=== PATIENT | female | born 2005 | race Caucasian/White ===

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

== ENCOUNTER 2023-06-01 23:37 | Emergency (ER) | payer BC, SELFPAY ==
[2023-06-01 23:38] VITALS: BP 133/96; PULSE 95; RESP 16; TEMP 36.4; O2SAT 100; BMI 41.3
--- OUTSIDE RECORDS SUMMARY | 2023-06-01 23:59 | XMS RPT_ITS | CCD ---
Author Name Unknown Address [id number] [place] [address] Organization [facility] Care Team Providers Care Medical Records Supervisor Name Role Phone Fide Truong Unavailable Unavailable Fide Truong Unavailable Unavailable Ad, Giuseppe Kwong Unavailable Unavailable Walker, Bridgette M Unavailable Unavailable Ad, Giuseppe L Unavailable Unavailable Walker, Bridgette M Unavailable Unavailable Catracho, Marcello L Unavailable Unavailable Catracho, Marcello L Unavailable Unavailable Ad, Giuseppe L Unavailable Unavailable Catracho, Marcello L Unavailable Unavailable Ad, Giuseppe L Unavailable Unavailable Catracho, Marcello L Unavailable Unavailable Ad, Giuseppe L Unavailable Unavailable Unavailable NO FAMILY PHYSICIAN, 837 Primary Care Unavail able ANN CHAND MD Attending Unavailable Ad, Dr. Giuseppe Cruz Primary Care Unavaila ble BuccaEmiliano Attending Unavailab marcio Duong, Dr. Giuseppe Cruz Primary Care UnavailAnn David Attending Unavailable Rustam Aponte Referring Unavailable Ad, Dr. Giuseppe Cruz Primary Care Unavaila Rustam Laguna Attending Unavailable Rustam Aponte Referring Unavailable Ad, Dr. Giuseppe Cruz Primary Care Unavaila Rustam Laguna Admitting Unavailable Rustam Aponte Attending Unavailable Ad, Dr. Giuseppe Cruz Primary Care Unavaila Ann Galloway Attending Unavailable Fadi, Dr. Rustam Pitt Attending Unavailable MD GIUSEPPE DUONG Primary Care Unavailab MD GIUSEPPE Roblero Referring Unavailab marcio Aponte, Dr. Rustam Pitt Attending Unavailable MD GIUSEPPE DUONG Primary Care Unavailab MD GIUSEPPE Roblero Primary Care Unavailab MD GIUSEPPE Roblero Referring Unavailab marcio Chen, Mrs. Ann Giron Attending MD GIUSEPPE Self Primary Care Unavailab marcio Aponte, Dr. Rustam Pitt Attending Unavailable Unavailable Primary Care Provider UnavailGiuseppe Ceja MD Primary Care Provider [phone] GIUSEPPE DUONG Primary Care Unavailable OLIVIA GREGORY Referring Unavailable GIUSEPPE DUONG Primary Care Unavailable SOFI TEMPLE Referring Unavailable GIUSEPPE DUONG Primary Care Unavailable GIUSEPPE DUONG Primary Care Unavailable OLIVIA GREGORY Attending Unavailable JOSS CALVILLO Attending Unavailable FIDE HODGE Attending Unavailable RYLEE DONOVAN Referring Unavailable RYLEE DONOVAN Attending Unavailable Allergies Allergy Classification Reported Allergen(s) Allergy Type Date of Onset Reaction(s) Facility Vital Signs Date Time Vital Sign Value Performing Clinician Facility 04-05-2023 03:06-0500 Diastolic blood pressure 71 mm[Hg] Olivia Gregory DO Work Phone: [facility] 04-05-2023 03:06-0500 Heart rate 67 /min Olivia Gregory DO Work Phone: [facility] 04-05-2023 03:06-0500 Respiratory rate 16 /min Olivia Gregory DO Work Phone: [facility] 04-05-2023 03:06-0500 SaO2% (BldA) [Mass fraction] 97 % Olivia Gregory DO Work Phone: [facility] 04-05-2023 03:06-0500 Systolic blood pressure 136 mm[Hg] Olivia Gregory DO Work Phone: [facility] 04-04-2023 21:11-0500 Body height 160 cm Olivia Gregory DO Work Phone: [facility] 04-04-2023 21:11-0500 Body mass index (BMI) [Ratio] 41.63 kg/m2 Olivia Gregory DO Work Phone: [facility] 04-04-2023 21:11-0500 Body temperature 97.11 [degF] Olivia Gregory DO Work Phone: [facility] 04-04-2023 21:11-0500 Body weight 106.59 kg Olivia Gregory DO Work Phone: [facility] 01-14-2023 11:05-0400 Body height 161.3 cm Rylee Ok PA-C Work Phone: [facility] 01-14-2023 11:05-0400 Body weight 106.59 kg Rylee Ok PA-C Work Phone: [facility] 01-14-2023 11:05-0400 Diastolic blood pressure 78 mm[Hg] Rlyee Ok PA-C Work Phone: [facility] 01-14-2023 11:05-0400 Heart rate 80 /min Rylee Ok PA-C Work Phone: [facility] 01-14-2023 11:05-0400 Systolic blood pressure 112 mm[Hg] Rylee Ko PA-C Work Phone: [facility] 07-15-2022 15:03-0400 Diastolic blood pressure 80 mm[Hg] Giuseppe Duong Work Phone: [facility] Work Phone: 07-15-2022 15:03-0400 Systolic blood pressure 122 mm[Hg] Giuseppe Duong Work Phone: [facility] Work Phone: 07-15-2022 15:02-0400 Body height 160.02 cm Giuseppe Duong Work Phone: [facility] Work Phone: 07-15-2022 15:02-0400 Body mass index (BMI) [Ratio] 42.78 kg/m2 Giuseppe Duong Work Phone: [facility] Work Phone: 07-15-2022 15:02-0400 Body surface area Derived from formula 2.1 m2 Giuseppe Duong Work Phone: [facility] Work Phone: 07-15-2022 15:02-0400 Body weight 109.54 kg Giuseppe Duong Work Phone: [facility] Work Phone: 07-15-2022 15:02-0400 31 1 Giuseppe Duong Work Phone: [facility] Work Phone: Encounters Encounter Date Encounter Type Care Provider Facility Start: 05-10-2023 End: 05-10-2023 ambulatory JOSS CALVILLO Facility:[facility] Start: 05-09-2023 End: 05-10-2023 ambulatory FIDE HODGE Facility:[facility] Start: 04-15-2023 End: 04-16-2023 ambulatory OLIVIA Henao [facility] Start: 04-15-2023 End: 04-15-2023 Subsequent hospital visit by physician Luis Carlos Mccollum 1 [facility] Procedures Date Procedure Procedure Detail Performing Clinician Start: 04-15-2023 [facility] OLIVIA Gudino WIFT Start: 04-15-2023 Hepatobil syst imag inc gb w/pharma intervenj Olivia W Gregory DO Work Phone: Start: 04-05-2023 US PELVIS TRANSABDOM INAL WITH TRANSVAGINAL OLIVIA Start: 04-05-2023 Us transvaginal Olivia W Gregory DO Work Phone: Start: 04-05-2023 SEDIMENTATION RATE, AUTOMATED OLIVIA Start: 04-05-2023 CT ABDOMEN PELVIS W IV CONTRAST OLIVIA Start: 04-04-2023 Comprehensive metabo lic 2000 panel - Serum or Plasma OLIVIA Start: 04-04-2023 Lipase [Enzymatic activity/volume] in Serum or Plasma OLIVIA Start: 04-04-2023 Magnesium [Mass/volu me] in Serum or Plasma OLIVIA GREGORY Start: 04-04-2023 CBC W Auto Different ial panel - Blood OLIVIA GREGORY Start: 04-04-2023 Sedimentation rate r bc automated Olivia Gregory DO Work Phone: Start: 04-04-2023 Ct abdomen & pelvis w/contrast material Olivia Gregory DO Work Phone: Start: 04-04-2023 End: 04-04-2023 Comprehensive metabolic panel Olivia Henao Swi ft DO Work Phone: Start: 03-17-2023 XR ABDOMEN 2 VIEWS S UPINE AND DECUBITUS OLIVIA GREGORY Start: 03-17-2023 CBC panel - Blood by Automated count GIUSEPPE DUONG Start: 03-17-2023 Comprehensive metabo lic 2000 panel - Serum or Plasma GIUSEPPE DUONG Start: 03-17-2023 Cyanocobalamin vitamin b-12 GIUSEPPE DUONG Start: 03-17-2023 Thyrotropin [Units/v olume] in Serum or Plasma GIUSEPPE DUONG Start: 03-17-2023 THYROXINE, FREE GIUSEPPE DUONG Start: 03-17-2023 VITAMIN D 25-HYDROXY,TOTAL GIUSEPPE DUONG Start: 03-17-2023 Radiologic exam abdo men 2 views Sofi Temple APRN-DUMP TRUCK DRIVER Work Phone: Start: 02-07-2023 Gastric emptying sandra ging study Rylee Euceda PA-C Work Phone: Start: 08-23-2022 SURGICAL PATHOLOGY RESULTS Rustam Aponte DO Work Phone: Start: 06-07-2022 Echocardiography Giuseppe Duong Work Phone: Start: 04-26-2022 Lipid 1996 panel - S maria c or Plasma Luis Carlos 1 Tonsillectomy and adenoidectomy Giuseppe Duong Work Phone: Plan of Treatment Date Care Activity Detail Author Start: 10-03-2053 Zoster Vaccines (1 of 2) Zoster Vaccines (1 of 2) [facility] Start: 04-26-2027 Lipid panel Lipid Panel [facility] Start: 12-31-2022 Influenza vaccination Influenza Vaccine (#1) [facility] Start: 10-03-2022 Urine microalbumin profile DTaP,Tdap,Td Vaccine (1 - Tdap) [facility] Start: 07-15-2022 NPV, Provider: Rustam Aponte, Status: Pen, Time: 3:00 PM NPV, Provider: Rustam Aponte, Status: Pen, Time: 3:00 PM NL-[id number]-Ehlrwno [address] [place] Work Phone: Start: 06-25-2022 FUV, Provider: Ann Chen, Status: Pen, Time: 1:00 PM FUV, Provider: Ann Chen, Status: Pen, Time: 1:00 PM MN-[id number]-Sqobgbb [address] [place] Work Phone: Start: 06-07-2022 EVENT JOSE, Provider: KATALINA DIAGNOSTIC THERAPIST,SMCMONITOR, Status: Pen, Time: 1:30 PM EVENT JOSE, Provider: KATALINA DIAGNOSTIC THERAPIST,SMCMONITOR, Status: Pen, Time: 1:30 PM [id number]-Rpccywkdhh-Atmxgny [address] [place] Work Phone: Start: 06-07-2022 ECHO, Provider: KATALINA HHVI ECHO 2,SMCECHO2, Status: Pen, Time: 12:30 PM ECHO, Provider: KATALINA HHVI ECHO 2,SMCECHO2, Status: Pen, Time: 12:30 PM [id number]-Mgtxqsf [address] [place] Work Phone: Start: 05-02-2022 Depression Assessment Depression Assessment [facility] Start: 10-03-2021 Chlamydia Screening (18-24) Chlamydia Screening (18-24) [facility] Start: 10-03-2021 GC (Gonorrhea) Screening (18-24) GC (Gonorrhea) Screening (18-24) [facility] Start: 10-03-2021 Hepatitis C Screening Hepatitis C Screening [facility] Start: 10-03-2021 Hepatitis C screening Hepatitis C Screening [facility] Start: 10-03-2021 HIV Screening HIV Screening [facility] Start: 2019 Meningococcal B Vaccine: Consider Based On Risk (1 of 2 - Patient Seeks Protection) Meningococcal B Vaccine: Consider Based On Risk (1 of 2 - Patient Seeks Protection) [facility] Start: 10-03-2017 Peds To Adult Transition Annual Assessment Peds To Adult Transition Annual Assessment [facility] Start: 2015 Peds To Adult Transition Initial Discussion Peds To Adult Transition Initial Discussion [facility] Start: 10-03-2014 HPV Vaccines (1 - 2-dose series) HPV Vaccines (1 - 2-dose series) [facility] Start: 10-03-2012 HPV Vaccine (1 - 2-dose series) HPV Vaccine (1 - 2-dose series) [facility] Start: 10-03-2010 DTaP/Tdap/Td Vaccines (1 - Tdap) DTaP/Tdap/Td Vaccines (1 - Tdap) [facility] Start: 10-03-2006 Well Child Visit (WCV) - Annual Well Child Visit (WCV) - Annual [facility] Start: 10-03-2004 MMR Vaccines (1 of 1 - Standard series) MMR Vaccines (1 of 1 - Standard series) [facility] Start: 10-03-2004 Varicella vaccination Varicella Vaccines (1 of 2 - 2-dose childhood series) [facility] Start: 06-05-2004 Application of dental fluoride varnish Fluoride Varnish [facility] Start: 04-04-2004 Covid-19 Vaccine (#1) Covid-19 Vaccine (#1) [facility] Start: 2003 Hearing Screening (#1) Hearing Screening (#1) [facility] Start: 2003 Hepatitis B Vaccine (1 of 3 - 3-dose series) Hepatitis B Vaccine (1 of 3 - 3-dose series) [facility] Start: 2003 Hepatitis B Vaccines (1 of 3 - 3-dose series) Hepatitis B Vaccines (1 of 3 - 3-dose series) [facility] Start: 2003 HIV screening HIV Screening [facility] End: 02-13-2024 Gastric emptying imaging study NM GASTRIC EMPTYING SOLID Radiology Routine Bilateral upper abdominal pain Nausea Early satiety 1 Occurrences starting 01/14/2023 until 02/13/2024 [facility] Work Phone: Immunizations Immunization Date Immunization Notes Care Provider Mark rudolph 06-27-2004 influenza virus vacc ine, unspecified formulation Rylee Euceda PA-C Work Phone: [facility] Payers Date Payer Category Payer Unknown [id number] 2017 Unknown 2008 Unknown [id number] 2003 Unknown [id number] 2.16.8 [id number] 2003 Unknown [id number] 2.16.8 [id number] 2003 Unknown [id number] 2.16.8 [id number] 2003 Unknown [id number] 2.16.8 [id number] 2003 Unknown [id number] 2.16.8 [id number] 2003 Unknown [id number] 2.16.8 [id number] 2003 Unknown [id number] 2.16. [id number] 2003 Unknown [id number] 2.16. [id number] 2003 Unknown [id number] 2.16. [id number] 2003 Unknown [id number] 2.16.8 [id number] 2003 Unknown [id number] 2.16.84 [id number] 2003 Unknown [id number] 2.16.84 0.1.785735.3.579.2.1243 2003 Unknown [id number] 2.16.84 [id number] 1983 Unknown [id number] 2.16.84 [id number] 1983 Unknown [id number] 2.16.84 [id number] 1983 Unknown [id number] 2.16.84 [id number] 1983 Unknown [id number] 2.16.84 [id number] 1983 Unknown [id number] 2.16. [id number] Social History Date Type Detail Facility Start: 01-14-2023 No caffeine use No caffeine use [facility] Work Phone: Start: 01-14-2023 Tobacco smoking status PAIS Never smoked tobacco [facility] Start: 01-14-2023 Tobacco use and exposure Smokeless tobacco non-user [facility] Start: 01-14-2023 Alcohol intake Lifetime non-d teresa (finding) [facility] Start: 01-14-2023 Tobacco use panel [facility] National Score (1-100), lower number is lower risk 70 [facility] Start: 2003 Sex Assigned At Not on file [facility] Tobacco smoking status [facility] Tobacco smoking consumption unknown [facility] Work Phone: Start: 03-07-2023 End: 04-15-2023 Exposure to SARS-CoV-2 (event) Not sure [facility] Clinical Notes 01-30-2022 to 05-10-2023 Olivia Gregory, DO - 04/04/2023 9:03 PM Juan Antonio Gregory DO - 04/04/2023 9:03 PM Art Pace RT(R) - 02/07/2023 8:30 AM Rylee Hudson PA-C - 01/14/2023 11:05 AM EDT Note Date & Type Note Facility 05-10-2023 Note HNO ID: [id number] Author: JOSS CALVILLO MD Service: ? Author Type: Physician Type: Progress Notes Filed: 05/12/2023 10:16 Note Text: Kajal Sweeney is a 17 year old White female who presents with complaints of cholecystitis HPI: This is a 17 yo female who presents today for persistent abdominal pains and nausea. She presents today on her own. States that she has been experiencing recurrent episodes over past 2 years. Reports that symptoms are worsened with eating. Pain localized to RUQ and epigastrium. Also states that she underwent EGD as part of workup last year. Denies any symptom improvement with PPI. Denies any chest pain or shortness of breath or palpitations associated with presenting complaint. Patient denies any prior abdominal surgery. Currently vapes intermittently - cessation counseled at today's visit. Denies any pertinent FMH. Takes PRN antiemetic - denies any other home meds. Denies EtOH. Pertinent workup includes: CT abdomen pelvis w IV contrast Final Result 1. 8.6 cm right adnexal mass with characteristics most suggestive of an ovarian dermoid/teratoma. Given the size of the mass, this may place patient at risk for torsion. FINDINGS: LOWER CHEST: No acute abnormality. LIVER: No significant parenchymal abnormality. BILE DUCTS: No significant intrahepatic or extrahepatic dilatation. GALLBLADDER: No significant abnormality. PANCREAS: No significant abnormality. SPLEEN: No significant abnormality. ADRENALS: No significant abnormality. KIDNEYS, URETERS, BLADDER: No significant abnormality. REPRODUCTIVE ORGANS: The uterus is unremarkable. There is an 8.6 x 5.2 cm right adnexal mass which contains soft tissue and macroscopic fat elements most suggestive of an ovarian dermoid/teratoma. Probable left ovarian corpus luteal cyst. GI: No obstruction. No bowel wall thickening or adjacent inflammatory change. Cecum is positioned within the mid pelvis in the appendix is in the left lower quadrant. The appendix is unremarkable. VESSELS: No significant abnormality. The portal veins and IVC are patent. PERITONEUM/RETROPERITONEUM: No ascites, free air, or fluid collection. LYMPH NODES: No enlarged lymph nodes. ABDOMINAL WALL: No significant abnormality. OSSEOUS STRUCTURES: No acute osseous abnormality. US PELVIS TRANSABDOMINAL WITH TRANSVAGINAL Final Result: Large complex echogenic mass in the right adnexa measuring 7.5 x 6.2 x 7.7 cm. This corresponds to large ovarian dermoid as characterized on concurrent CT. Flow is demonstrated to the periphery of this mass. A separate right ovary is not identified. Note should be made that presence of flow does not exclude torsion. Correlate with symptomatology and if there is high clinical concern gynecological consultation can be considered. Unremarkable sonographic appearance of the uterus and left ovary. IMPRESSION:1. This study demonstrates markedly delayed filling of the gallbladder, findings are consistent with chronic cholecystitis and biliary dyskinesia in the appropriate clinical setting. 04/2023: T.bili: 0.4, Alk phos: 51, AST: 43, ALT: 38 PAST MEDICAL HISTORY Diagnosis Date Chronic cholecystitis Scoliosis PAST SURGICAL HISTORY Procedure Laterality Date EGD W/O [facility] SPEC VARICIES INJ 08/23/2022 TONSILLECTOMY AND ADENOIDECTOMY Social History Tobacco Use Smoking status: Never Smokeless tobacco: Never Vaping Use Vaping Use: current everyday user Substances: Nicotine Substance Use Topics Alcohol use: Never Drug use: Never FAMILY HISTORY Problem Relation Age of Onset Heart Mother Diabetes Father Heart Sister Hypertension Sister Stroke Maternal Grandmother Colon Cancer No Family History ALLERGIES No Known Allergies Current Outpatient Medications Medication Sig promethazine (PHENERGAN) 12.5 mg tablet Take 1 tablet by mouth every 6 hours as needed. No current facility-administered medications for this visit. REVIEW OF SYSTEMS: Review of Systems Constitutional: Negative for chills and fever. Respiratory: Negative for shortness of breath. Cardiovascular: Negative for chest pain. Gastrointestinal: Positive for abdominal pain, constipation, nausea and vomiting. Negative for diarrhea. PHYSICAL EXAM: BP 110/72 Ht 5' 3 (1.60m) Wt 237 lb (107.5kg) LMP 04/15/2023 BMI 41.99 kg/(m2). General Evaluation: NAD, alert/oriented Head: Normocephalic Neck: No JVD Chest: Symmetrical Abdomen: soft, obese, mildly TTP RUQ, no R/G/PS, negative Pena's sign. No RLQ pain or pelvic pain Genitalia: Deferred Breast: Deferred Extremities: Normal ROM Constitutional: No acute distress Eyes: EOMI Ears, nose, mouth, and throat: Grossly WNL Respiratory/lungs: No acute distress or dyspnea Musculoskeletal: Ambulatory Skin: No jaundice Neurologic: CN grossly intact Psychiatric: Alert, Oriented Hematologic/lymphatic: No lymphedema Proce (more content not included)... [facility] 05-09-2023 Note HNO ID: [id number] Author: FIDE HODGE APRN.DUMP TRUCK DRIVER Service: ? Author Type: Nurse Practitioner Type: Progress Notes Filed: 05/09/2023 17:19 Note Text: Kajal Sweeney is a 17 year old female who presents for problem visit of adnexal mass. HPI: Patient was seen in the ER on 04/04/23 for abdominal pain. Found a gallbladder problem, has appointment tomorrow to schedule surgery with [facility]. Surgery is to be at [facility] by Dr. Paulino. 8.6 cm right adnexal mass with characteristics most suggestive of an ovarian cyst/teratoma (noted on CT). OB History No obstetric history on file. [facility] Therapist History LMP: 04/15/2023 (Exact Date), Having periods Age at Menarche: Age at First : Age at Menopause: [facility] [employer] Therapist History Comments: Sexual Activity: Yes; Male Contraception: Condom PAST MEDICAL HISTORY Diagnosis Date Chronic cholecystitis Scoliosis PAST SURGICAL HISTORY Procedure Laterality Date EGD W/O [facility] SPEC VARICIES INJ 08/23/2022 TONSILLECTOMY AND ADENOIDECTOMY FAMILY HISTORY Problem Relation Age of Onset Heart Mother Diabetes Father Heart Sister Hypertension Sister Stroke Maternal Grandmother Colon Cancer No Family History Social History Tobacco Use Smoking status: Never Smokeless tobacco: Never Vaping Use Vaping Use: current everyday user Substances: Nicotine Substance Use Topics Alcohol use: Never Drug use: Never Current Outpatient Medications Medication Sig promethazine (PHENERGAN) 12.5 mg tablet Take 1 tablet by mouth every 6 hours as needed. No current facility-administered medications for this visit. Allergies As of Date: 05/09/2023 (No Known Allergies) Fully Assessed 01/14/2023 REVIEW OF SYSTEMS Abdomen: No bloating, early satiety, indigestion, or increased flatulence. No abdominal pain, vomiting, diarrhea + nausea, constipation Bladder: No dysuria, gross hematuria, urinary frequency, urinary urgency, or incontinence. Breast: No breast lumps, nipple d/c, overlying skin changes, redness or skin retraction. Expanded ROS: N/A Allergies and current medication updated:Yes EXAM: BP 108/68 Ht 5' 3.5 (1.61m) Wt 230 lb (104.3kg) LMP 04/15/2023 BMI 40.10 kg/(m2). GENERAL: pleasant, female in no apparent distress HEENT: Normocephalic, atraumatic, mucus membranes moist, and no lesions NECK: Supple, full range of motion, no adenopathy, and thyroid normal DERMATOLOGY: Normal, without lesions, non-icteric, and non-hirsute BREAST: soft, non-tender, symmetric, no dominant mass, normal nipple-areolar complex, no lymphadenopathy, and no nipple discharge (done per patient request) CHEST: Normal inspiratory effort ABDOMEN: soft, non-tender, and no masses NEURO: alert and oriented x3,exam grossly non-focal EXTREMITIES: normal ASSESSMENT AND PLAN: 1. Adnexal mass - ICD9: 625.8, ICD10: N94.89 - 8 cm suspected dermoid cyst - Having surgery to removal gallbladder, yet to be scheduled - Discussed risks of torsion with patient and signs and symptoms, when to go to ER - Cyst will need removed - To consult with OBGYN physician Fide Hodge APRN.HEIDI Medical Decision Making: Problems: Moderate: New problem with uncertain prognosis Risk: Moderate: Decision on minor surgery w/ risk factors Medical Decision Making Level: 4 - Moderate [facility] 04-04-2023 Emergency department Note HPI Chief Complaint Patient presents with Abdominal Pain Pt is c/o abdominal pain that is radiating to her back. Pt denies and trauma. Pt stated she can't describe the pain. Pt rated the pain an 8/10 on pain scale. 17-year-old female presents with chief complaint of midepigastric pain. Patient states symptoms started approximately 1 hour ago. Patient states she has had similar symptoms for the last 2 years with etiology never being determined. Patient states she had an gastric emptying study and an ultrasound of the gallbladder which she states she was told were normal. Patient is presently on no medication to treat this. Slight nausea but no vomiting or diarrhea at present. Patient denies any chest pain or shortness of breath or palpitations associated presenting complaint. I did go over all the results with the patient. I spoke to the patient at length about her workup over the last 12+ months. I feel the patient has biliary dyskinesia. Patient will have an ultrasound of the gallbladder with Kinevac to determine if this is the case. Patient will take the prescription to her provider so the test can be ordered. Patient will be discharged on medication as needed.. History provided by: Patient Mirela Coma Scale Score: 15 Patient History No past medical history on file. No past surgical history on file. No family history on file. Social History Tobacco Use Smoking status: Not on file Smokeless tobacco: Not on file Substance Use Topics Alcohol use: Not on file Drug use: Not on file Physical Exam ED Triage Vitals [04/04/232110] Temp Heart Rate Resp BP 36.2 C (97.1 F) 94 16 131/81 SpO2 Temp Source Heart Rate Source Patient Position 100 % Tympanic Monitor Sitting BP Location FiO2 (%) Left arm -- Physical Exam Vitals and nursing note reviewed. Constitutional: General: She is not in acute distress. Appearance: She is well-developed. HENT: Head: Normocephalic and atraumatic. Eyes: Conjunctiva/sclera: Conjunctivae normal. Cardiovascular: Rate and Rhythm: Normal rate and regular rhythm. Heart sounds: No murmur heard. Pulmonary: Effort: Pulmonary effort is normal. No respiratory distress. Breath sounds: Normal breath sounds. Abdominal: Palpations: Abdomen is soft. Tenderness: There is abdominal tenderness in the epigastric area. Musculoskeletal: General: No swelling. Cervical back: Neck supple. Skin: General: Skin is warm and dry. Capillary Refill: Capillary refill takes less than 2 seconds. Neurological: Mental Status: She is alert. Psychiatric: Mood and Affect: Mood normal. Labs Reviewed COMPREHENSIVE METABOLIC PANEL - Abnormal Result Value Glucose 83 Sodium 135 (*) Potassium 3.7 Chloride 103 Bicarbonate 20 (*) Anion Gap 16 Urea Nitrogen 13 Creatinine 0.47 (*) eGFR >90 Calcium 9.1 Albumin 4.4 Alkaline Phosphatase 51 Total Protein 7.7 AST 43 (*) Bilirubin, Total 0.4 ALT 38 SEDIMENTATION RATE, AUTOMATED - Abnormal Sedimentation Rate 24 (*) MAGNESIUM - Normal Magnesium 2.11 LIPASE - Normal Lipase 20 Narrative: Venipuncture immediately after or during the administration of Metamizole may lead to falsely low results. Testing should be performed immediately prior to Metamizole dosing. CBC WITH AUTO DIFFERENTIAL WBC 10.7 nRBC 0.0 RBC 5.01 Hemoglobin 14.6 Hematocrit 45.1 MCV 90 MCH 29.1 MCHC 32.4 RDW 12.0 Platelets 283 Neutrophils % 70.6 Immature Granulocytes %, Automated 0.4 Lymphocytes % 23.3 Monocytes % 4.1 Eosinophils % 1.1 Basophils % 0.5 Neutrophils Absolute 7.56 Immature Granulocytes Absolute, Automated 0.04 Lymphocytes Absolute 2.49 Monocytes Absolute 0.44 Eosinophils Absolute 0.12 Basophils Absolute 0.05 US PELVIS TRANSABDOMINAL WITH TRANSVAGINAL Final Result Large complex echogenic mass in the right adnexa measuring 7.5 x 6.2 x 7.7 cm. This corresponds to large ovarian dermoid as characterized on concurrent CT. Flow is demonstrated to the periphery of this mass. A separate right ovary is not identified. Note should be made that presence of flow does not exclude torsion. Correlate with symptomatology and if there is high clinical concern gynecological consultation can be considered. Unremarkable sonographic appearance of the uterus and left ovary. MACRO: None Signed by: Sonya Thompson 04/05/2023 2:19 AM Dictation workstation: [id number] CT abdomen pelvis w IV contrast Final Result 1. 8.6 cm right adnexal mass with characteristics most suggestive of an ovarian dermoid/teratoma. Given the size of the mass, this may place patient at risk for torsion. MACRO: None Signed by: Richard Del Rosario 04/04/2023 11:33 PM Dictation workstation: [id number] ED Course & MDM Diagnoses as of 04/05/23 0303 Cyst, ovary, dermoid, right Biliary dyskinesia US PELVIS TRANSABDOMINAL WITH TRANSVAGINAL Final Result Large complex echogenic mass in the right adnexa measuring 7.5 x 6.2 x 7.7 cm. This corresponds to large ovarian dermoid as characterized on concurrent CT. Flow is demonstrated to the periphery of this mass. A separate right ovary is not identified. Note should be made that presence of flow does not exclude torsion. Correlate with symptomatology and if there is high clinical concern gynecological consultation can be considered. Unremarkable sonographic appearance of the uterus and left ovary. MACRO: None Signed by: Sonya Thompson 04/05/2023 2:19 AM Dictation workstation: [id number] CT abdomen pelvis w IV contrast Final Result 1. 8.6 cm right adnexal mass with characteristics most suggestive of an ovarian dermoid/teratoma. Given the size of the mass, this may place patient at risk for torsion. MACRO: None Signed by: Richard Del Rosario 04/04/2023 11:33 PM Dictation workstation: [id number] Medical Decision Making Hita Scan of GB as an outpt. Take medication as prescribed. Mcnairy diet. Follow-up with [facility] for evaluation of large right dermoid cyst. If symptoms worsen return to ED. Procedure Procedures Olivia Gregory DO 04/05/23 030 documented in this encounter [facility] Work Phone: 04-04-2023 Physician Emergency department Note HPI Chief Complaint Patient presents with Abdominal Pain Pt is c/o abdominal pain that is radiating to her back. Pt denies and trauma. Pt stated she can't describe the pain. Pt rated the pain an 8/10 on pain scale. 17-year-old female presents with chief complaint of midepigastric pain. Patient states symptoms started approximately 1 hour ago. Patient states she has had similar symptoms for the last 2 years with etiology never being determined. Patient states she had an gastric emptying study and an ultrasound of the gallbladder which she states she was told were normal. Patient is presently on no medication to treat this. Slight nausea but no vomiting or diarrhea at present. Patient denies any chest pain or shortness of breath or palpitations associated presenting complaint. I did go over all the results with the patient. I spoke to the patient at length about her workup over the last 12+ months. I feel the patient has biliary dyskinesia. Patient will have an ultrasound of the gallbladder with [employer] to determine if this is the case. Patient will take the prescription to her provider so the test can be ordered. Patient will be discharged on medication as needed.. History provided by: Patient [place] Coma Scale Score: 15 Patient History No past medical history on file. No past surgical history on file. No family history on file. Social History Tobacco Use Smoking status: Not on file Smokeless tobacco: Not on file Substance Use Topics Alcohol use: Not on file Drug use: Not on file Physical Exam ED Triage Vitals [04/04/231] Temp Heart Rate Resp BP 36.2 C (97.1 F) 94 16 131/81 SpO2 Temp Source Heart Rate Source Patient Position 100 % Tympanic Monitor Sitting BP Location FiO2 (%) Left arm -- Physical Exam Vitals and nursing note reviewed. Constitutional: General: She is not in acute distress. Appearance: She is well-developed. HENT: Head: Normocephalic and atraumatic. Eyes: Conjunctiva/sclera: Conjunctivae normal. Cardiovascular: Rate and Rhythm: Normal rate and regular rhythm. Heart sounds: No murmur heard. Pulmonary: Effort: Pulmonary effort is normal. No respiratory distress. Breath sounds: Normal breath sounds. Abdominal: Palpations: Abdomen is soft. Tenderness: There is abdominal tenderness in the epigastric area. Musculoskeletal: General: No swelling. Cervical back: Neck supple. Skin: General: Skin is warm and dry. Capillary Refill: Capillary refill takes less than 2 seconds. Neurological: Mental Status: She is alert. Psychiatric: Mood and Affect: Mood normal. Labs Reviewed COMPREHENSIVE METABOLIC PANEL - Abnormal Result Value Glucose 83 Sodium 135 (*) Potassium 3.7 Chloride 103 Bicarbonate 20 (*) Anion Gap 16 Urea Nitrogen 13 Creatinine 0.47 (*) eGFR >90 Calcium 9.1 Albumin 4.4 Alkaline Phosphatase 51 Total Protein 7.7 AST 43 (*) Bilirubin, Total 0.4 ALT 38 SEDIMENTATION RATE, AUTOMATED - Abnormal Sedimentation Rate 24 (*) MAGNESIUM - Normal Magnesium 2.11 LIPASE - Normal Lipase 20 Narrative: Venipuncture immediately after or during the administration of Metamizole may lead to falsely low results. Testing should be performed immediately prior to Metamizole dosing. CBC WITH AUTO DIFFERENTIAL WBC 10.7 nRBC 0.0 RBC 5.01 Hemoglobin 14.6 Hematocrit 45.1 MCV 90 MCH 29.1 MCHC 32.4 RDW 12.0 Platelets 283 Neutrophils % 70.6 Immature Granulocytes %, Automated 0.4 Lymphocytes % 23.3 Monocytes % 4.1 Eosinophils % 1.1 Basophils % 0.5 Neutrophils Absolute 7.56 Immature Granulocytes Absolute, Automated 0.04 Lymphocytes Absolute 2.49 Monocytes Absolute 0.44 Eosinophils Absolute 0.12 Basophils Absolute 0.05 US PELVIS TRANSABDOMINAL WITH TRANSVAGINAL Final Result Large complex echogenic mass in the right adnexa measuring 7.5 x 6.2 x 7.7 cm. This corresponds to large ovarian dermoid as characterized on concurrent CT. Flow is demonstrated to the periphery of this mass. A separate right ovary is not identified. Note should be made that presence of flow does not exclude torsion. Correlate with symptomatology and if there is high clinical concern gynecological consultation can be considered. Unremarkable sonographic appearance of the uterus and left ovary. MACRO: None Signed by: Sonya Thompson 04/05/2023 2:19 AM Dictation workstation: [id number] CT abdomen pelvis w IV contrast Final Result 1. 8.6 cm right adnexal mass with characteristics most suggestive of an ovarian dermoid/teratoma. Given the size of the mass, this may place patient at risk for torsion. MACRO: None Signed by: Richard Del Rosario 04/04/2023 11:33 PM Dictation workstation: [id number] ED Course & MDM Diagnoses as of 04/05/23302 Cyst, ovary, dermoid, right Biliary dyskinesia US PELVIS TRANSABDOMINAL WITH TRANSVAGINAL Final Result Large complex echogenic mass in the right adnexa measuring 7.5 x 6.2 x 7.7 cm. This corresponds to large ovarian dermoid as characterized on concurrent CT. Flow is demonstrated to the periphery of this mass. A separate right ovary is not identified. Note should be made that presence of flow does not exclude torsion. Correlate with symptomatology and if there is high clinical concern gynecological consultation can be considered. Unremarkable sonographic appearance of the uterus and left ovary. MACRO: None Signed by: Sonya Thompson 04/05/2023 2:19 AM Dictation workstation: [id number] CT abdomen pelvis w IV contrast Final Result 1. 8.6 cm right adnexal mass with characteristics most suggestive of an ovarian dermoid/teratoma. Given the size of the mass, this may place patient at risk for torsion. MACRO: None Signed by: Richard Del Rosario 04/04/2023 11:33 PM Dictation workstation: [id number] Medical Decision Making Hita Scan of GB as an outpt. Take medication as prescribed. Mcnairy diet. Follow-up with [facility] for evaluation of large right dermoid cyst. If symptoms worsen return to ED. Procedure Procedures Olivia Gregory DO 04/05/23302 [facility] Work Phone: 02-07-2023 Note HNO ID: [id number] Author: Art Shukla RT(R) Service: Nuclear Medicine Author Type: Technologist Type: Progress Notes Filed: 02/07/2023 9:23 AM Note Text: RADIOLOGY SERVICE PROGRESS NOTE SERVICE DATE: 02/07/2023 SERVICE TIME: 9:22 AM PATIENT IDENTITY VERIFICATION COMPLETED USING TWO (2) STANDARD IDENTIFIERS: Name and Date of confirmed by patient verbally and Name and Date of confirmed by identification band FALL SCREENING: Has the patient had 2 falls in the last year or 1 fall with injury or currently using an Ambulatory Assistive Device (Walker, Cane, Wheelchair, Crutches, etc.)? No PATIENT GENDER DATA: .female : No ALLERGIES: Reviewed and unchanged MEDICATIONS REVIEWED: Not applicable PATIENT RELEVANT IMPLANT DATA REVIEWED: Not Applicable CREATININE: No results found for: CREAT , EGFROTH , EGFRAA P.O.C.T. RESULTS: N/A February 07, [address] PERFORMED: No IV SITE: NM only - not applicable, oral or physician administered agents given to patient POST EXAM PIV STATUS: Not applicable PROCEDURE TYPE: NM GET: 0.9 mCi Tc99m SULFUR COLLOID was administered orally via 3 ounces of Egg Beaters,1 piece of toast, 1 ounce of jelly with 8 ounces of water orally ADMINISTRATION TIME: 9:13 PATIENT DISCHARGED TO: Ambulatory patient, left [place] department area. A Diagnostic radioactive procedure has taken place, with no further precautions necessary other than routine body substance precautions. More information regarding radiation safety can be found using this link: [email or web address] [email or web address] SIGNATURE: RT Erum(R) PATIENT NAME: Kajal Sweeney DATE: February 07, 2023 TIME: 9:22 AM PAGER/CONTACT #: [facility] 02-07-2023 History of Present illness Narrative RADIOLOGY SERVICE PROGRESS NOTE SERVICE DATE: 02/07/2023 SERVICE TIME: 9:22 AM PATIENT IDENTITY VERIFICATION COMPLETED USING TWO (2) STANDARD IDENTIFIERS: Name and Date of confirmed by patient verbally and Name and Date of confirmed by identification band FALL SCREENING: Has the patient had 2 falls in the last year or 1 fall with injury or currently using an Ambulatory Assistive Device (Walker, Cane, Wheelchair, Crutches, etc.)? No PATIENT GENDER DATA: .female : No ALLERGIES: Reviewed and unchanged MEDICATIONS REVIEWED: Not applicable PATIENT RELEVANT IMPLANT DATA REVIEWED: Not Applicable CREATININE: No results found for: CREAT , EGFROTH , EGFRAA P.O.C.T. RESULTS: N/A February 07, [address] PERFORMED: No IV SITE: NM only - not applicable, oral or physician administered agents given to patient POST EXAM PIV STATUS: Not applicable PROCEDURE TYPE: NM GET: 0.9 mCi Tc99m SULFUR COLLOID was administered orally via 3 ounces of Egg Beaters,1 piece of toast, 1 ounce of jelly with 8 ounces of water orally ADMINISTRATION TIME: 9:13 PATIENT DISCHARGED TO: Ambulatory patient, left [place] department area. A Diagnostic radioactive procedure has taken place, with no further precautions necessary other than routine body substance precautions. More information regarding radiation safety can be found using this link: [email or web address] SIGNATURE: RT Erum(R) PATIENT NAME: Kajal Sweeney DATE: February 07, 2023 TIME: 9:22 AM PAGER/CONTACT #: documented in this encounter [facility] 01-14-2023 Note HNO ID: [id number] Author: Rylee Euceda PA-C Service: ? Author Type: Physician Neon Light Installer Type: Progress Notes Filed: 01/14/2023 11:32 AM Note Text: CHIEF COMPLAINT: Patient presents with: Abdominal Pain: Has been progressively getting worse over the last year. EGD 08/23/22 This consult was requested by Self for an opinion regarding abdominal pain. My final recommendations will be communicated to the requesting health care provider by way of the shared medical record for internal providers or letter via the [employer] for external providers. HPI: Kajal Sweeney is a 17 year old female who presents for Abdominal Pain (Has been progressively getting worse over the last year. EGD 08/23/22). Patient tells me that since October 22, developed abdominal pain. Notes pain is constant but severity comes and goes. Pain is in the upper abdomen and radiates into her back. Notes pain is worse when laying flat. Omeprazole made symptoms are worse. No GERD. Getting very nauseous with anything being put in her stomach. No vomiting. Notes a lot of early satiety. Appetite fluctuates. Down at least 60 lb since symptoms started. Bowel movements are irregular. Can have diarrhea or be constipated. Pain is not affected by bowel habits. Notes a lot of bloating. Struggling with not passing gas. Vapes nicotine. No recent alcohol use. Liver disease runs in family. EGD 07/2022: FINAL DIAGNOSIS A. DISTAL ESOPHAGUS BIOPSY: --SQUAMOCOLUMNAR JUNCTION WITH REFLUX ASSOCIATED CHANGE --INTESTINAL METAPLASIA, DYSPLASIA OR MALIGNANCY ARE NOT IDENTIFIED B. ANTRUM BIOPSY: --CHRONIC INACTIVE GASTRITIS, SEE NOTE --NO MORPHOLOGIC EVIDENCE OF HELICOBACTER PYLORI-LIKE ORGANISMS Note: An immunohistochemical stain for Helicobacter pylori is negative with appropriate control. C. DUODENUM BIOPSY: --SMALL BOWEL MUCOSA WITH PRESERVED VILLOUS ARCHITECTURE AND NO SIGNIFICANT DIAGNOSTIC CHANGE Abdominal US 07/23/2022: Impression Nonspecific increased echogenicity throughout the liver, most likely fatty infiltration. Record Review: [facility] / Outside records reviewed. PAST MEDICAL HISTORY Diagnosis Date Scoliosis PAST SURGICAL HISTORY Procedure Laterality Date EGD W/O [facility] SPEC VARICIES INJ 08/23/2022 TONSILLECTOMY AND ADENOIDECTOMY Allergies: ALLERGIES No Known Allergies Medications: No prescriptions on file. FAMILY HISTORY Problem Relation Age of Onset Colon Cancer No Family History Employer And Job Title: None on file Years Of Education Completed: Not specified Marital Status: Single Social History Tobacco Use Smoking status: Never Smokeless tobacco: Never Vaping Use Vaping Use: current everyday user Substance Use Topics Alcohol use: Never Drug use: Never Review of Systems: Review of Systems Constitutional: Positive for appetite change, fatigue and unexpected weight change. HENT: Positive for trouble swallowing. Gastrointestinal: Positive for abdominal distention, abdominal pain, constipation, diarrhea, nausea and vomiting. Change in bowel habits, Gas All other systems reviewed and are negative. Are you taking any blood thinners? No Physical Examination: Pulse 80 Ht 5' 3.5 (1.61m) Wt 235 lb (106.6kg) BMI 40.97 kg/(m2). Physical Exam Constitutional: Appearance: Normal appearance. She is obese. HENT: Head: Normocephalic and atraumatic. Eyes: General: No scleral icterus. Extraocular Movements: Extraocular movements intact. Conjunctiva/sclera: Conjunctivae normal. Pupils: Pupils are equal, round, and reactive to light. Cardiovascular: Rate and Rhythm: Normal rate and regular rhythm. Pulses: Normal pulses. Heart sounds: Normal heart sounds. Pulmonary: Effort: Pulmonary effort is normal. Breath sounds: Normal breath sounds. Abdominal: General: Abdomen is flat. Bowel sounds are normal. Palpations: Abdomen is soft. Tenderness: There is abdominal tenderness (epigastric TTP). Musculoskeletal: General: Normal range of motion. Cervical back: Normal range of motion and neck supple. Skin: General: Skin is warm and dry. Coloration: Skin is not jaundiced. Neurological: General: No focal deficit present. Mental Status: She is alert and oriented to person, place, and time. Psychiatric: Mood and Affect: Mood normal. Behavior: Behavior normal. Thought Content: Thought content normal. Judgment: Judgment normal. Assessment/Plan (R10.11, R10.12) Bilateral upper abdominal pain (primary encounter diagnosis) (R11.0) Nausea (R68.81) Early satiety 1. Bilateral upper abdominal pain -- Patient with bilateral upper abdominal pain, nausea, early satiety since last January. Has tried numerous OTC remedies, Omeprazole, Zofran without relief. -- Normal EGD/US -- Plan for GES r/o gastroparesis -- Start Phenergan 12.5 mg PRN q6H - NM GASTRIC EMPTYING SOLID; Future 2. Nausea -- Patient with bilateral upp (more content not included)... [facility] 01-14-2023 History of Present illness Narrative CHIEF COMPLAINT: Patient presents with: Abdominal Pain: Has been progressively getting worse over the last year. EGD 08/23/22 This consult was requested by Self for an opinion regarding abdominal pain. My final recommendations will be communicated to the requesting health care provider by way of the shared medical record for internal providers or letter via the [employer] for external providers. HPI: Kajal Sweeney is a 17 year old female who presents for Abdominal Pain (Has been progressively getting worse over the last year. EGD 08/23/22). Patient tells me that since February 20, developed abdominal pain. Notes pain is constant but severity comes and goes. Pain is in the upper abdomen and radiates into her back. Notes pain is worse when laying flat. Omeprazole made symptoms are worse. No GERD. Getting very nauseous with anything being put in her stomach. No vomiting. Notes a lot of early satiety. Appetite fluctuates. Down at least 60 lb since symptoms started. Bowel movements are irregular. Can have diarrhea or be constipated. Pain is not affected by bowel habits. Notes a lot of bloating. Struggling with not passing gas. Vapes nicotine. No recent alcohol use. Liver disease runs in family. EGD 07/2022: FINAL DIAGNOSIS A. DISTAL ESOPHAGUS BIOPSY: --SQUAMOCOLUMNAR JUNCTION WITH REFLUX ASSOCIATED CHANGE --INTESTINAL METAPLASIA, DYSPLASIA OR MALIGNANCY ARE NOT IDENTIFIED B. ANTRUM BIOPSY: --CHRONIC INACTIVE GASTRITIS, SEE NOTE --NO MORPHOLOGIC EVIDENCE OF HELICOBACTER PYLORI-LIKE ORGANISMS Note: An immunohistochemical stain for Helicobacter pylori is negative with appropriate control. C. DUODENUM BIOPSY: --SMALL BOWEL MUCOSA WITH PRESERVED VILLOUS ARCHITECTURE AND NO SIGNIFICANT DIAGNOSTIC CHANGE Abdominal US 07/23/2022: Impression Nonspecific increased echogenicity throughout the liver, most likely fatty infiltration. Record Review: [facility] / Outside records reviewed. PAST MEDICAL HISTORY Diagnosis Date Scoliosis PAST SURGICAL HISTORY Procedure Laterality Date EGD W/O [facility] SPEC VARICIES INJ 08/23/2022 TONSILLECTOMY & ADENOIDECTOMY <AGE 10 Allergies: ALLERGIES No Known Allergies Medications: No prescriptions on file. FAMILY HISTORY Problem Relation Age of Onset Colon Cancer No Family History Employer And Job Title: None on file Years Of Education Completed: Not specified Marital Status: Single Social History Tobacco Use Smoking status: Never Smokeless tobacco: Never Vaping Use Vaping Use: current everyday user Substance Use Topics Alcohol use: Never Drug use: Never Review of Systems: Review of Systems Constitutional: Positive for appetite change, fatigue and unexpected weight change. HENT: Positive for trouble swallowing. Gastrointestinal: Positive for abdominal distention, abdominal pain, constipation, diarrhea, nausea and vomiting. Change in bowel habits, Gas All other systems reviewed and are negative. Are you taking any blood thinners? No Physical Examination: Pulse 80 Ht 5' 3.5 (1.61m) Wt 235 lb (106.6kg) BMI 40.97 kg/(m^2). Physical Exam Constitutional: Appearance: Normal appearance. She is obese. HENT: Head: Normocephalic and atraumatic. Eyes: General: No scleral icterus. Extraocular Movements: Extraocular movements intact. Conjunctiva/sclera: Conjunctivae normal. Pupils: Pupils are equal, round, and reactive to light. Cardiovascular: Rate and Rhythm: Normal rate and regular rhythm. Pulses: Normal pulses. Heart sounds: Normal heart sounds. Pulmonary: Effort: Pulmonary effort is normal. Breath sounds: Normal breath sounds. Abdominal: General: Abdomen is flat. Bowel sounds are normal. Palpations: Abdomen is soft. Tenderness: There is abdominal tenderness (epigastric TTP). Musculoskeletal: General: Normal range of motion. Cervical back: Normal range of motion and neck supple. Skin: General: Skin is warm and dry. Coloration: Skin is not jaundiced. Neurological: General: No focal deficit present. Mental Status: She is alert and oriented to person, place, and time. Psychiatric: Mood and Affect: Mood normal. Behavior: Behavior normal. Thought Content: Thought content normal. Judgment: Judgment normal. Assessment/Plan (R10.11, R10.12) Bilateral upper abdominal pain (primary encounter diagnosis) (R11.0) Nausea (R68.81) Early satiety 1. Bilateral upper abdominal pain -- Patient with bilateral upper abdominal pain, nausea, early satiety since last January. Has tried numerous OTC remedies, Omeprazole, Zofran without relief. -- Normal EGD/US -- Plan for GES r/o gastroparesis -- Start Phenergan 12.5 mg PRN q6H - NM GASTRIC EMPTYING SOLID; Future 2. Nausea -- Patient with bilateral upper abdominal pain, nausea, early satiety since last January. Has tried numerous OTC remedies, Omeprazole, Zofran without relief. -- Normal EGD/US -- Plan for GES r/o gastroparesis -- Start Phenergan 12.5 mg PRN q6H - NM GASTRIC EMPTYING SOLID; Future 3. Early satiety -- Patient with bilateral upper abdominal pain, nausea, early satiety since last January. Has tried numerous OTC remedies, Omeprazole, Zofran without relief. -- Normal EGD/US -- Plan for GES r/o gastroparesis -- Start Phenergan 12.5 mg PRN q6H - NM GASTRIC EMPTYING SOLID; Future Follow up in office PRN. Recommended to please call office/go to ER if fever, chills, chest pain, SOB, diarrhea, nausea, emesis, worsening abdominal pain, dehydration occurs I spent a total of 20 minutes on the date of the service which included preparing to see the patient, [id number] patient care, completing clinical documentation, obtaining and/or reviewing separately obtained history, performing a medically appropriate examination, counseling and educating the patient/family/caregiver, and ordering medications, tests, or procedures. Rylee Euceda PA-C January 14, 2023 11:25 AM documented in this encounter [facility] 06-14-2022 Note ED Nursing Discharge Summary Entered On: 06/13/2022 22:46 EST Performed On: 06/13/2022 22:45 EST by Janett Cummings RN [place] Information [id number] ED IV's : No IV ED IV Site Assessment : No IV ED Vitals Completed : Yes ED Final Assessment Completed : Yes ED Progress Note Completed : Yes Complete all PRN/Pain response forms? : Yes ED Disassociate Patient from Monitor : N/A Updated Depart Time : No (not needed time is correct) ED Belongings sent w patient 430672 : Yes Valuables Complete : Not applicable Janett Cummings RN - 06/13/2022 22:45 EST Education Instructions given to : Patient TeachBack Methodology : Explanation, Printed Material Barriers to Learning : None evident Educational concerns documented : N/A no barriers noted Janett Cummings RN - 06/13/2022 22:45 EST Post-Hospital Education Adult Grid Plan of Care : Verbalizes understanding Janett Cummings RN - 06/13/2022 22:45 EST ED Assistance Summary Assistance Given? : No Janett Cummings RN - 06/13/2022 22:45 EST [facility] 01-30-2022 History of Present illness Narrative Brittany is a pleasant 16-year-old female. She is seen today in regards to abdominal distress. She states around January 2022 she developed persistent nausea she saw her family doctor felt that it was reflux disease she was placed on omeprazole which she took for 3 weeks without improvement. She had no waterbrash indigestion or typical reflux symptoms. She has now progressed to the point where she feels full rather rapidly feels that her stomach is distended and bloated with meals she cannot identify any particular foods that make it worse. She has also noticed that instead of having 1 bowel movement to 2 bowel movements daily she is now going 3 days without bowel movement. She denies any melanic stools no rectal bleeding. Denies any change of her symptoms around her menses. Family history negative for inflammatory bowel disease. She has had no recent hospitalization no prior surgeries and takes no chronic medications.Lab work last performed was April 2022 showing a extremely low vitamin D level of 15 normal B12 levels and Radha-Mcmillan and heterophile antibodies which were negative. She did have an A1c performed at that time which was normal and comprehensive panel was normal as well but last TSH was performed greater than 1 year ago. [facility] [address] Work Phone: [facility] Diagnosis Bilateral upper abdominal pain Abdominal pain, right upper quadrant Nausea Nausea alone Early satiety [facility]* Diagnosis Unspecified abdominal pain documented in this encounter [facility] Work Phone: Evaluation note* Diagnosis Unspecified abdominal pain documented in this encounter [facility] Work Phone: Evaluation note* Diagnosis Nausea with vomiting, unspecified Unspecified chronic gastritis without bleeding Nausea Nausea alone documented in this encounter [facility] Work Phone: Evaluation note* Diagnosis Cyst, ovary, dermoid, right- Primary Biliary dyskinesia Other specified disorder of gallbladder documented in this encounter [facility] Work Phone: Evaluation note* Diagnosis Biliary dyskinesia Other specified disorder of gallbladder documented in this encounter [facility] Work Phone: History of Present illness Narrative* Kajal Sweeney is an 16-year-old obese female with no significant PMH establishing Cardiology care referred by her Rn Pediatric for a RBBB finding on her EKG. * Rn Pediatric-Pediatric consultants * Kajal reports of ongoing left-sided chest pain extending from the top of her chest to underneath her breast for approximately 1.5 months. She reports the pain varies in intensity and frequency and occurs primarily at night lasting minutes to hours. She describes the pain as stabbing crushing and burning. There are no alleviating or aggravating factors. Kajal reports occasionally the pain will radiate to her back. Associated symptoms include occasional SOB, feeling her heartbeat in her head, occasional dizziness, and presyncope. * Family hx: * Paternal grandfather-heart attack or stroke * Dad-none * Maternal grandmother-stroke * Mom-PVCs * Siblings-none * Social hx: * Going to [employer] for [employer] * Non-smoker * Denies alcohol use * Denies illicit drug use * Today she reports chest pain during our conversation stating actually I am having pain right now. No other associated symptoms presently. [facility] Phone: [facility] (narrative)* Diagnostic Procedure Only (Routine) - Open Specialty Diagnoses / Procedures Referred By Marcus liao Referred To Contact MOLECULAR & FUNCTIONAL IMAGING Diagnoses Bilateral upper abdominal pain Nausea Early satiety Procedures NM GASTRIC EMPTYING SOLID GASTRIC EMPTYING STUDY Rylee Euceda PA-C [address] [facility] [place] [address] Molecular & Functional Imaging [address] [place] [address] Referral ID Status Reason Start Date Expiration Date V isits Requested Visits Authorized [id number] Open Auto-Generate d Referral 01/14/2023 02/13/2024 1 1 [facility] for referral (narrative)* Diagnostic Procedure Only (Routine) - Closed Specialty Diagnoses / Procedures Referred By Marcus liao Referred To Contact MOLECULAR & FUNCTIONAL IMAGING Diagnoses Bilateral upper abdominal pain Nausea Early satiety Procedures NM GASTRIC EMPTYING SOLID GASTRIC EMPTYING STUDY Rylee Euceda PA-C [address] [facility] [place] [address] Molecular & Functional Imaging [address] [place], [place] [id number] Referral ID Status Reason Start Date Expiration Date V isits Requested Visits Authorized [id number] Closed Auto-Generate d Referral 01/18/2023 05/01/2023 1 1 [facility] Summary Purpose Family History No Family History Records FoundUnknown Family Member Name Dates Details Family history of cerebrovas cular accident (CVA): Maternal Grandmother, Paternal Grandfather(V17.1, Z82.3) Status:Active Family history of myocardial infarction: Maternal Grandmother, Paternal Grandfather(V17.3, Z82.49) Status:Active Family history of diabetes m ellitus: Paternal Grandmother, Paternal Grandfather(V18.0, Z83.3) Status:Active Unknown Family Member Name Dates Details Family history of cerebrovas cular accident (CVA): Maternal Grandmother, Paternal Grandfather(V17.1, Z82.3) Status:Active Family history of myocardial infarction: Maternal Grandmother, Paternal Grandfather(V17.3, Z82.49) Status:Active Family history of diabetes m ellitus: Paternal Grandmother, Paternal Grandfather(V18.0, Z83.3) Status:Active Unknown Family Member Name Dates Details Family history of cerebrovas cular accident (CVA): Maternal Grandmother, Paternal Grandfather(V17.1, Z82.3) Status:Active Family history of myocardial infarction: Maternal Grandmother, Paternal Grandfather(V17.3, Z82.49) Status:Active Family history of diabetes m ellitus: Paternal Grandmother, Paternal Grandfather(V18.0, Z83.3) Status:Active Unknown Family Member Name Dates Details Family history of cerebrovas cular accident (CVA): Maternal Grandmother, Paternal Grandfather(V17.1, Z82.3) Status:Active Family history of myocardial infarction: Maternal Grandmother, Paternal Grandfather(V17.3, Z82.49) Status:Active Family history of diabetes m ellitus: Paternal Grandmother, Paternal Grandfather(V18.0, Z83.3) Status:Active Unknown Family Member Name Dates Details Family history of cerebrovas cular accident (CVA): Maternal Grandmother, Paternal Grandfather(V17.1, Z82.3) Status:Active Family history of myocardial infarction: Maternal Grandmother, Paternal Grandfather(V17.3, Z82.49) Status:Active Family history of diabetes m ellitus: Paternal Grandmother, Paternal Grandfather(V18.0, Z83.3) Status:Active Unknown Family Member Name Dates Details Family history of cerebrovas cular accident (CVA): Maternal Grandmother, Paternal Grandfather(V17.1, Z82.3) Status:Active Family history of myocardial infarction: Maternal Grandmother, Paternal Grandfather(V17.3, Z82.49) Status:Active Family history of diabetes m ellitus: Paternal Grandmother, Paternal Grandfather(V18.0, Z83.3) Status:Active Advance Directives No Advanced Directives Records FoundNo Advanced Directives Records FoundNo Advanced Directives Records FoundNo Advanced Directives Records FoundNo Advanced Directives Records FoundNo Advanced Directives Records FoundNo Advanced Directives Records FoundNo Advanced Directives Records FoundNo Advanced Directives Records FoundNo Advanced Directives Records Found Chief Complaint NPV in office today for nausea, heartburn since January 2022, patient states that it does not matter what she eats or drinks its still very bad. Patient states she gets nausea even with drinking water. Patient states she has been having a BM 2-3 times weekly. Reason for Referral Specialty Diagnoses / Procedures Referred By Marcus liao Referred To Contact Radiology Diagnoses Unspecified abdominal pain Procedures XR abdomen 2 views supine and decubitus Sofi Temple, [employer] [address] [place] [address] Referral ID Status Reason Start Date Expiration Date Visits Requested Visits Authorized [id number] Authorized Perform Procedure 3 03/16/2024 1 1 Specialty Diagnoses / Procedures Referred By Marcus liao Referred To Contact Radiology Diagnoses Biliary dyskinesia Procedures NM hepatobiliary Olivia Gregory, DO [address] [place] [address] Referral ID Status Reason Start Date Expiration Date Visits Requested Visits Authorized [id number] Authorized Perform Procedure 04/05/2023 04/04/2024 3 3 Additional Source Comments INFORMATION SOURCE (unrecogn ized section and content) DATE CREATED AUTHOR AUTHOR'S ORGANIZ ATION 06/14/2022 [facility] DATE CREATED AUTHOR AUTHOR'S ORGANIZ ATION 06/16/2022 [facility] DATE CREATED AUTHOR AUTHOR'S ORGANIZ ATION 07/16/2022 [facility] DATE CREATED AUTHOR AUTHOR'S ORGANIZ ATION 09/01/2022 [facility] DATE CREATED AUTHOR AUTHOR'S ORGANIZ ATION 12/21/2022 [facility] DATE CREATED AUTHOR AUTHOR'S ORGANIZ ATION 03/22/2023 [facility] DATE CREATED AUTHOR AUTHOR'S ORGANIZ ATION 05/13/2023 [facility] DATE CREATED AUTHOR AUTHOR'S ORGANIZ ATION 05/13/2023 [facility] DATE CREATED AUTHOR AUTHOR'S ORGANIZ ATION 05/15/2023 [facility] Source Comments (unrecognize d section and content) In the event this informatio n is protected by the Federal Confidentiality of Alcohol and Drug Abuse Patient Records regulations: The Federal rules restrict any use of the information to criminally investigate or prosecute any alcohol or drug abuse patient.[facility] the event this information is protected by the Federal Confidentiality of Alcohol and Drug Abuse Patient Records regulations: The Federal rules restrict any use of the information to criminally investigate or prosecute any alcohol or drug abuse patient.[facility] Reason for Visit (unrecogniz ed section and content) Specialty Diagnoses / Procedures Referred By Contac t Referred To Contact Diagnoses HCAP Procedures HCAP Self [facility] [place] [address] Referral ID Status Reason Start Date Expiration Date Visits Requested Visits Authorized [id number] Authorized Patient Cleared - Qualified 100% FAS 11/16/2022 02/14/2023 99 99 Reason Comments Radiology NM Specialty Diagnoses / Procedures Referred By Contac t Referred To Contact MOLECULAR & FUNCTIONAL IMAGING Diagnoses Bilateral upper abdominal pain Nausea Early satiety Procedures NM GASTRIC EMPTYING SOLID GASTRIC EMPTYING STUDY Rylee Euceda PA-C [address] [facility] [place] [address] Molecular & Functional Imaging [address] [place] [id number] Referral ID Status Reason Start Date Expiration Date V isits Requested Visits Authorized [id number] Closed Auto-Generate d Referral 01/18/2023 05/01/2023 1 1 Specialty Diagnoses / Procedures Referred By Contac t Referred To Contact Radiology Diagnoses Unspecified abdominal pain Procedures XR abdomen 2 views supine and decubitus Sofi Temple, [employer] [address] [place] [address] Referral ID Status Reason Start Date Expiration Date Visits Requested Visits Authorized [id number] Authorized Perform Procedure 3 03/16/2024 1 1 Reason Comments Other Nausea with vomiting , unspecified Reason Comments Abdominal Pain Pt is c/o abdominal pain that is radiating to her back. Pt denies and trauma. Pt stated she can't describe the pain. Pt rated the pain an 8/10 on pain scale. Specialty Diagnoses / Procedures Referred By Contac t Referred To Contact Radiology Diagnoses Biliary dyskinesia Procedures NM hepatobiliary Olivia Gregory, [address] [place] [address] Referral ID Status Reason Start Date Expiration Date Visits Requested Visits Authorized [id number] Authorized Perform Procedure 04/05/2023 04/04/2024 3 3 Care Teams (unrecognized sec tion and content) Medical Records Supervisor Relationship Specialty [place] [address] [place] [id number] PCP - General 03/01/19 Medical Records Supervisor Relationship Specialty Start Date End Date Giuseppe Duong MD [address] [place] [id number] PCP - General 03/01/19 Medical Records Supervisor Relationship Specialty Start Date End Date Giuseppe Duong MD [address] [place] [address] [facility] General 03/01/19 Medical Records Supervisor Relationship Specialty Start [place] [address] [place] [id number] [facility] 03/01/19 Scheduled Active and Recently Administ ered Medications (unrecognized section and content) Continuous Medication Order 04/03/2023 04/04/2023 04/05/2023 sodium chloride 0.9% infusion 125 mL/hr, intravenous, Continuous, Starting on Tue04/04/23 at 2120 2120 (New Bag - Provider: Belen Romero, CARMEN) 0305 (Stopped - Provider: Belen Romero, RN) No Frequency Medication Order 04/03/2023 04/04/2023 04/05/2023 sodium chloride (PF) 0.9% solution - [employer] Override Pull Starting on Tue04/04/23 at 2130, For 1 dose, Created by cabinet override 2135 (Due) FOR RECORDS PERTAINING TO PATIENTS WHO ARE OR HAVE BEEN ENROLLED IN A CHEMICAL DEPENDENCY/SUBSTANCEABUSE PROGRAM, SOME INFORMATION MAY BE OMITTED. This clinical summary was aggregated from multiple sources. Caution should be exercised in using it in the provision of clinical care. This summary normalizes information from multiple sources, and as a consequence, information in this document may materially change the coding, format and clinical context of patient data. In addition, data may be omitted in some cases. CLINICAL DECISIONS SHOULD BE BASED ON THE PRIMARY CLINICAL RECORDS. [facility]. provides no warranty or guarantee of the accuracy or completeness of information in this document.
--- NOTE | 2023-06-02 00:02 | EDS_ITS ---
HPI HPI - GI History of Present Illness Chief Complaint: Abd Pain Informant: patient Abdominal Pain/Flank Pain Onset: Today Context: Gradual Onset Timing: Continuous and Waxes and wanes Quality: Aching, Burning, Cramping, Dull, Sharp and Stabbing Location: RUQ Worsened by: Nothing Relieved by: Nothing Nausea/Vomiting/Emesis GI Symptom: Positive for Nausea; Negative for Vomiting Diarrhea/Melena/Hematochezia GI Symptom: Negative for Diarrhea, Melena or Hematochezia Associated Symptoms Associated Symptoms: Negative for Dysuria, Frequency or Hematuria Narrative Narrative: Patient presents with abdominal pain that began approximate 1 to 2 hours prior to arrival. Patient states it is gradually getting worse. Patient states her last meal was approximately 4 hours prior to arrival. Patient states her pain is constant but waxes and wanes. Patient states her pain is mainly over the right upper quadrant. Patient states it radiates into her back. Patient states she has a history of chronic cholecystitis. Patient states she also has a history of a right ovarian mass. Patient admits to some nausea but denies any vomiting. Patient denies any diarrhea, melena, or hematochezia. Patient states nothing makes her pain worse and nothing makes it better. PFSH PFSH Home Medications dicyclomine 10 mg capsule 20 mg (2 x 10 mg) PO Q6H PRN PRN abdominal pain #30 CAPSULES 10/17/22 [Rx Last Taken Unknown] ondansetron 4 mg disintegrating tablet 8 mg (2 x 4 mg) PO Q8H PRN PRN Nausea #20 tabs 10/17/22 [Rx Last Taken Unknown] Allergy/AdvReac Type Severity Reaction Status Date / Time No Known Allergies Allergy Verified 06/01/23 23:39 Surgical History S/P tonsillectomy Social History Smoking Status: Current every day smoker tobacco type: e-cigarettes ROS ROS ED Constitutional Constitutional ED: Reports fever(s) and subjective; Denies chills Eyes Eyes: Denies blurry vision or change in vision ENT ENT ED: Denies rhinorrhea or sore throat Cardiovascular Cardiovascular: Reports chest pain; Denies palpitations Respiratory/Chest Respiratory/Chest: Denies cough or dyspnea Gastrointestinal Gastrointestinal: Reports abdominal pain and nausea; Denies diarrhea, melena or vomiting Genitourinary Genitourinary ED: Denies dysuria or hematuria Musculoskeletal Musculoskeletal: Reports back pain; Denies neck pain Integumentary Denies abscess or rash Neurologic Neurologic: Reports headache(s); Denies weakness Allergic/Immunologic Allergic/Immunologic ED: Denies mouth swelling or urticaria EXAM Physical Exam Const Vital Signs: 06/01/23 23:38 06/02/23 04:05 Temperature 97.5 F L 97.6 F L Temperature Source Temporal Pulse Rate 95 76 Respiratory Rate 16 18 Blood Pressure 133/96 H 128/64 H Blood Pressure Mean 108 85 Pulse Ox 100 97 Oxygen Delivery Method Room Air Positive well nourished, well developed and obese General Appearance ED: well developed and NAD Nutritional Appearance: obese HEENT Reports moist mucous membranes Neck supple and no JVD Resp normal respiratory effort and clear to auscultation bilaterally Cardio regular rate and regular rhythm GI non-distended Palpation: soft, tender epigastric, RUQ and Pena's sign and rebound tenderness present; Negative for guarding Neuro CN's II-XII intact bilaterally, moves all extremities and no sensory deficits noted Sensorium / Orientation: alert Motor Exam: strength 5/5 throughout Psych mental status grossly normal MDM MDM MDM Narrative Medical decision making narrative: Differential diagnosis includes cholecystitis, cholelithiasis, peptic ulcer disease, duodenal ulcer, bowel obstruction, perforation, pyelonephritis, pancreatitis, and electrolyte abnormality. A CT scan of the abdomen pelvis will be obtained to assess for bowel obstruction and perforation. CBC will be obtained to assess for leukocytosis and anemia. Comprehensive metabolic profile will be obtained to assess for hepatic function, renal function, and electrolyte abnormality. Lipase will be obtained to assess for pancreatitis. Urinalysis will be obtained to assess for urinary tract infection and hematuria. Serum hCG will be obtained to assess for . Lab Data Attestation: I reviewed the patient's lab results. Lab results narrative: CBC was reviewed and was within normal limits. Comprehensive metabolic profile was reviewed. AST was slightly elevated at 163 and ALT was slightly elevated at 148. The remainder was within normal limits. Lipase was reviewed and was normal at 23. Serum hCG was reviewed and was negative. Urinalysis was reviewed. Leukocyte esterase was 100 with 25-50 white blood cells but 10-25 epithelial cells. There is no bacteria seen. Labs: Laboratory Results - last 24 hr 06/02/23 06/02/23 06/02/23 00:15 00:25 01:43 WBC 9.1 RBC 5.10 Hgb 14.7 Hct 43.5 MCV 85.3 MCH 28.8 MCHC 33.8 RDW Std Deviation 37.4 RDW Coeff of Crystal 12.0 Plt Count 314 MPV 10.2 Immature Gran % (Auto) 0.200 Neut % (Auto) 72.2 H Lymph % (Auto) 21.5 [place] % (Auto) 4.6 Eos % (Auto) 0.8 Baso % (Auto) 0.7 Absolute Neuts (auto) 6.6 Absolute Lymphs (auto) 1.96 Nucleated RBC % 0 Sodium Cancelled 139 Potassium Cancelled 3.7 Chloride Cancelled 111 H Carbon Dioxide Cancelled 22.0 Anion Gap Cancelled 6 BUN Cancelled 11 Creatinine Cancelled 0.57 Estim Creat Clear Calc Cancelled 184.74 Est GFR (MDRD) Af Amer Cancelled 173 Est GFR (MDRD) Non-Af Cancelled 143 BUN/Creatinine Ratio Cancelled 19.2 Glucose Cancelled 123 H Calcium Cancelled 8.9 Total Bilirubin Cancelled 0.70 AST Cancelled 163 H ALT Cancelled 148 H Alkaline Phosphatase Cancelled 52 Total Protein Cancelled 7.5 Albumin Cancelled 3.7 Globulin Cancelled 3.8 Albumin/Globulin Ratio Cancelled 1.0 Lipase Cancelled 23 Serum , Qual NEGATIVE Urine Color Yellow Urine Clarity Clear Urine pH 5.0 Ur Specific [place] 1.025 Urine Protein 30 H Urine Glucose (UA) Normal Urine Ketones 5 H Urine Occult Blood 10 H Urine Nitrite Negative Urine Bilirubin Negative Urine Urobilinogen 4 H Ur Leukocyte Esterase 100 H Urine RBC 5-10 SEEN Urine WBC 25-50 SEEN Ur Squamous Epith Cells 10-25 SEEN Urine Bacteria 0 SEEN Urine Mucus 0 SEEN Radiography Diagnostic Testing: Clinical Impression(s) from Imaging Studies Abdomen/Pelvis CT 06/02/23 00:15 IMPRESSION: Heterogeneous fat-containing mass in the right ovary measures 8.2 cm is consistent with a dermoid cyst. There is small amount of free fluid in the pelvis. Electronically Signed: Arlen Packer MD at 3:28 EST , CT scan of the abdomen pelvis was obtained. There is a dermoid cyst on the right ovary. There is no other acute abnormality noted. There is no free fluid or free air. This was interpreted by the radiologist and was also independently reviewed by myself. Additional Tests and Interventions Additional Tests or Interventions: Urine culture was ordered. Treatment and Re-Evaluation :: Patient was given IV fluids, morphine, and Zofran. Patient was advised of her findings. 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 Patient understood and was agreeable with the plan. All questions were answered. Discharge Plan Triage Chief Complaint: Abd Pain ED Provider: Bill Carrillo Dx/Rx/DC Orders Clinical Impression: Mass of right ovary, Abdominal pain Instructions: ED Abdominal Pain Unkn Cause Fem, ED Abdominal Pain Gallstone Poss Prescriptions: No Action dicyclomine 10 mg capsule 20 mg PO Q6H PRN PRN (Reason: abdominal pain) Qty: 30 0RF ondansetron [ondansetron] 4 mg tablet,disintegrating 8 mg PO Q8H PRN PRN (Reason: Nausea) Qty: 20 0RF Primary Care Provider: Care Physician,No Primary Referrals: Care Physician,No Primary [Primary Care Provider] - Disposition Disposition: Home, Self Care Discharge Date/Time: 06/02/23 04:05
--- NOTE | 2023-06-02 00:15 | CT_ITS ---
STUDY: CT ABDOMEN AND PELVIS WITH CONTRAST - URINARY TRACT REASON FOR EXAM: Female, 17 years old. Abdominal pain -- IV PO Contrast RADIATION DOSAGE (If Supplied By Facility): CTDIvol = ( 18.71 ) mGy, DLP = ( 1268.35 ) mGycm TECHNIQUE: Oral and amp; IV Gastrografin and amp; 100mL Isovue-[id number] was administered. Transaxial images were obtained from the dome of the diaphragm to the symphysis pubis in the arterial, nephrographic and excretory phases. Multiplanar coronal and sagittal images were reformatted. Individualized Dose Optimization Techniques Were Used For This CT. COMPARISON: No relevant prior comparison study available FINDINGS: The visualized lung bases are unremarkable. The visualized portions of the heart are within normal limits. Normal liver. Normal gallbladder and extrahepatic biliary system. Normal spleen. Normal pancreas. Normal bilateral adrenal glands. Normal visualized stomach. Normal small intestine. Normal colon. The appendix is visualized and appears normal. Normal abdominal aorta. No retroperitoneal adenopathy. Normal right kidney. Normal left kidney. Normal urinary bladder. Heterogeneous fat-containing mass in the right ovary measures 8.2 cm is consistent with a dermoid cyst. There is small amount of free fluid in the pelvis. Normal abdominal wall. Normal osseous structures. CT/Abdomen/Pelvis WITH Contrast IMPRESSION: Heterogeneous fat-containing mass in the right ovary measures 8.2 cm is consistent with a dermoid cyst. There is small amount of free fluid in the pelvis. Electronically Signed: Arlen Packer MD at 3:28 EST ,
[2023-06-02 00:33] LABS: Bacteria 0 SEEN /hpf (None Seen); Mucous, Urine 0 SEEN /hpf (<or=2+)
[2023-06-02 00:36] LABS: Absolute Lymphocyte Count 1.96 X10^3/uL (0.83-4.51); Absolute Neutrophil Count 6.6 X10^3/uL (2.0-7.7); Basophil# 0.06 X10^3/uL; Basophil% 0.7 % (0-1); Eosinophil# 0.07 X10^3/uL; Eosinophils% 0.8 % (0-5); Hematocrit 43.5 % (37-47); Hemoglobin 14.7 g/dL (12.0-15.0); Lymphocyte # 1.96 X10^3/ul (0.83-4.51); Lymphocyte % 21.5 % (19-41); Mean Corp Hgb Conc 33.8 g/dL (32-36); Mean Corpuscular Hgb 28.8 pg (27.0-32.0); Mean Corpuscular Volume 85.3 fL (81-99); Mean Platelet Vol. 10.2 fl (6.2-12.0); Monocyte# 0.42 X10^3/uL; Monocyte% 4.6 % (0-10); NRBC Flagged by Analyzer 0 % (0-5); Neutrophil # 6.58 X10^3/uL (2.7-7.7); Neutrophil % 72.2 % (47-70); Platelet Count 314 K/mm3 (150-450); RBC Distribution Width SD 37.4 fl (35.1-43.9); White Blood Count 9.1 K/mm3 (4.4-11.0)
[2023-06-02 00:39] LABS: Color, Urine Yellow (Yellow); Glucose, Dipstick Normal (Normal); Ketone-Dipstick 5 mg/dl (Negative); Leukocyte Esterase-Dipstick 100 /ul (Negative); Nitrite-Dipstick Negative (Negative); Occult Blood-Urine 10 /ul (Negative); Protein-Dipstick 30 mg/dl (Negative); Specific Gravity, Urine 1.025 (1.002-1.030); Urine Bilirubin Dipstick Negative (Negative); Urine Clarity Clear (Clear); Urine Urobilinogen 4 mg/dl (Normal)
[2023-06-02 00:48] LABS: Red Blood Cells-Urine 5-10 SEEN /hpf (0-5); Squamous Epithelial Cells - UA 10-25 SEEN /hpf (5-10); White Blood Cells 25-50 SEEN /hpf (0-5)
[2023-06-02 00:53] LABS: Internal QC Validated? YES +Cl - CLEAR BKGD; Pregnancy, Serum, hCG Quali. NEGATIVE Negative
[2023-06-02] MEDS: 0.9% Normal Saline (1000mL) 1,000 ML 1000 ML IV (00:54)
[2023-06-02] MEDS: Ondansetron 4 MG/2 ML Vial IV ×2 (00:54→03:51)
[2023-06-02] MEDS: Morphine 4 MG/ML Syringe IV (00:54)
[2023-06-02 02:12] LABS: AST(SGOT) 163 U/L (15-37); Alanine Aminotransfer ALT/SGPT 148 U/L (13-56); Albumin, Serum 3.7 g/dL (3.2-5.0); Alkaline Phosphatase 52 U/L (45-117); Anion Gap 6 (5-15); BUN 11 mg/dL (7-18); BUN/Creat Ratio 19.2 RATIO (10-20); Calcium,Total 8.9 mg/dL (8.5-10.1); Chloride 111 mmol/L (98-107); Creatinine, Serum 0.57 mg/dL (0.55-1.02); EST Glomerular Filtration Rate 143 mL/min (>60); Est Glom Filt Rate - Afr Amer 173 mL/min (>60); Estimated Creatinine Clearance 184.74 ml/min; Globulin 3.8 g/dL (2.2-4.2); Glucose 123 mg/dL (74-106); Lipase 23 U/L (13-75); Potassium 3.7 mmol/L (3.5-5.1); Protein, Total 7.5 g/dL (6.4-8.2); Sodium Level 139 mmol/L (136-145)
[2023-06-02 04:05] VITALS: BP 128/64; PULSE 76; RESP 18; TEMP 36.4; O2SAT 97
== END 2023-06-02 04:05 | disposition home or self-care (01) ==
PROVIDERS: Emergency Provider Emergency Medicine; Visit Provider Emergency Medicine
DX: N83.8 Other noninflammatory disorders of ovary, fallopian tube and broad ligament (principal); F17.290 Nicotine dependence, other tobacco product, uncomplicated; R07.9 Chest pain, unspecified; R51.9 Headache, unspecified; E66.9 Obesity, unspecified; D27.0 Benign neoplasm of right ovary
CPT/HCPCS: 74177; 80053; 81001; 83690; 84703; 85025; 87086; 87088; 96361; 96374; 96375; 96376; 99282; J7030; Q9967; A4216; J2405

== ENCOUNTER 2023-06-21 22:47 | Emergency (ER) | payer BC, SELFPAY ==
[2023-06-21 22:47] VITALS: BP 107/87; PULSE 97; RESP 18; TEMP 35.9; O2SAT 100; BMI 39.2
[2023-06-21] MEDS: Ondansetron 4 MG/2 ML Vial IV (23:24)
[2023-06-21] MEDS: Morphine 4 MG/ML Syringe IV (23:24)
[2023-06-21] MEDS: 0.9% Normal Saline (1000mL) 1,000 ML 999 ML IV (23:24)
--- OUTSIDE RECORDS SUMMARY | 2023-06-21 23:29 | XMS RPT_ITS | CCD ---
Author Name Unknown Address [id number] [place] [address] Organization [facility] Care Team Providers Care Medical Orderly Name Role Phone Fide Truong Unavailable Unavailable Fide Truong Unavailable Unavailable Ad, Giuseppe Kwong Unavailable Unavailable Walker, Bridgette M Unavailable Unavailable Ad, Giuseppe L Unavailable Unavailable Walker, Bridgette M Unavailable Unavailable Catracho, Marcello L Unavailable Unavailable Actracho, Marcello L Unavailable Unavailable Ad, Giuseppe L [...] Provider UnavailGiuseppe Ceja MD Primary Care Provider [phone] GIUSEPPE DUONG Primary Care Unavailable OLIVIA GREGORY Referring Unavailable GIUSEPPE DUONG Primary Care Unavailable SOFI TEMPLE Referring Unavailable GIUSEPPE DUONG Primary Care Unavailable GIUSEPPE DUONG Primary Care Unavailable OLIVIA GREGORY Attending Unavailable JOSS CALVILLO Attending Unavailable FIDE HODGE Attending Unavailable RYLEE DONOVAN Referring Unavailable RYLEE DONOVAN Attending Unavailable Allergies Allergy Classification Reported Allergen(s) Allergy Type Date of Onset Reaction(s) Facility (2 sources) ALLERGIES NOT ON FILE; Translations: [ALLERGIES NOT ON FILE] Propensity to adverse reactions (disorder) [facility] Medications Current Medications Medication Drug Class(es) Dates Sig (Normalized) Sig (Original) ketorolac tromethamine 10 mg oral tablet (3 sources) Nonsteroidal Anti-inflammatory Drug, Cyclooxygenase Inhibitor Start: 04-05-2023 End: 04-10-2023 take 1 tablet by mouth every six hours for pain ketorolac (Toradol) 10 mg tablet Indications: Cyst, ovary, dermoid, right Take 1 tablet (10 mg) by mouth every 6 hours if needed for moderate pain (4 - 6) for up to 5 days. 20 tablet 0 04/05/2023 04/10/2023 Active Completed/Discontinued Medications Medication Drug Class(es) Dates Sig (Normalized) Sig (Original) iohexol (OMNIPaque) 350 mg iodine/mL solution 67 mL (1 source) Start: 04-04-2023 End: 04-04-2023 iohexol (OMNIPaque) 350 mg iodine/mL solution 67 mL No Reported Medications (4 sources) No Reported Medications Quantity: 0 Refills: 0 Ordered: 15-Jul-2022 DO Active norethindrone 0.35 mg oral tablet (2 sources) Start: 04-20-2022 Norethindrone 0.35 MG Oral Tablet Quantity: 84 Refills: 0 Ordered: 22-Apr-2022 DO Start : 20-Dec-2022 Active pantoprazole 40 mg injection (2 sources) Proton Pump Inhibitor Start: 04-04-2023 End: 04-04-2023 pantoprazole (ProtoNix) injection - Omnicell Override Pull Problems Active Problems Problem Classification Problem Date Documented Da te Episodic/Chronic Biliary tract disease (4 sources) Biliary dyskinesia; Translations: [Other specified diseases of gallbladder] Onset: 04-15-2023 04-05-2023 Episodic Cardiac dysrhythmias (9 sources) Palpitations; Translations: [Palpitations] Onset: 06-07-2022 Episodic Conditions associated with dizziness or vertigo (6 sources) Postural dizziness; Translations: [Dizziness and giddiness] Episodic Gastritis and duodenitis (2 sources) Unspecified chronic gastritis without bleeding; Translations: [Chronic gastritis] Onset: 08-23-2022 08-31-2022 Chronic Nonspecific chest pain (9 sources) Atypical chest pain; Translations: [Other chest pain] Onset: 06-07-2022 Episodic Other and unspecified benign neoplasm (1 source) Mature cystic teratoma of right ovary; Translations: [Benign neoplasm of right ovary] 04-05-2023 Episodic Other and unspecified benign neoplasm (2 sources) Benign neoplasm of right ovary; Translations: [Benign neoplasm of right ovary] Onset: 04-04-2023 Episodic Other female genital disorders (1 source) Other specified conditions associated with female genital organs and menstrual cycle; Translations: [Adnexal mass] Onset: 05-09-2023 Episodic Other gastrointestinal disorders (4 sources) Abdominal bloating; Translations: [Flatulence, eructation, and gas pain] Episodic Other gastrointestinal disorders (1 source) Abdominal distension (gaseous); Translations: [Abdominal distension (gaseous)] Onset: 07-23-2022 Episodic Ovarian cyst (2 sources) Unspecified ovarian cyst, left side; Translations: [Unspecified ovarian cyst, right side] Onset: 05-10-2023 Episodic Residual codes; unclassified (2 sources) Procedure and treatment not carried out due to patient leaving prior to being seen by health care provider; Translations: [Proc/trtmt not crd out d/t pt lv bef [facility] by [facility] care prov] Onset: 06-13-2022 Episodic Residual codes; unclassified (2 sources) Early satiety; Translations: [Early satiety] 01-14-2023 Episodic Past or Other Problems Problem Classification Problem Date Documented Da te Episodic/Chronic Abdominal pain (10 sources) Upper abdominal pain; Translations: [Right upper quadrant pain] Onset: 02-07-2023 01-14-2023 Episodic Nausea and vomiting (15 sources) Nausea; Translations: [Nausea alone] Onset: 07-23-2022 Episodic Residual codes; unclassified (1 source) Early satiety; Translations: [Early satiety] Onset: 02-07-2023 Episodic Results Test Name Value Interpretation Reference Range Facil ity Vital Signs Date Time Vital Sign Value Performing Clinician Facility 04-05-2023 03:06-0500 Diastolic blood pressure 71 mm[Hg] Olivia Gregory DO Work Phone: [facility] 04-05-2023 03:06-0500 Heart rate 67 /min Olivia Gregory DO Work Phone: [facility] 04-05-2023 03:06-0500 Respiratory rate 16 /min Olivia Gregory DO Work Phone: [facility] 04-05-2023 03:06-0500 SaO2% (BldA) [Mass fraction] 97 % Olivia Gregory DO Work Phone: [facility] 04-05-2023 03:06-0500 Systolic blood pressure 136 mm[Hg] Olivia Gregory DO Work Phone: [facility] 04-04-2023 21:11-0500 Body height 160 cm Olivia Gregory DO Work Phone: [facility] 04-04-2023 21:11-0500 Body mass index (BMI) [Ratio] 41.63 kg/m2 Olivia Gregory DO Work Phone: [facility] 04-04-2023 21:11-0500 Body temperature 97.11 [degF] Olivia Gregory DO Work Phone: [facility] 04-04-2023 21:11-0500 Body weight 106.59 kg Olivia Gregory DO Work Phone: [facility] 01-14-2023 11:05-0400 Body height 161.3 cm Rylee Ok PA-C Work Phone: [facility] 01-14-2023 11:05-0400 Body weight 106.59 kg Rylee Ok PA-C Work Phone: [facility] 01-14-2023 11:05-0400 Diastolic blood pressure 78 mm[Hg] Rylee Ok PA-C Work Phone: [facility] 01-14-2023 11:05-0400 Heart rate 80 /min Rylee Ok PA-C Work Phone: [facility] 01-14-2023 11:05-0400 Systolic blood pressure 112 mm[Hg] Rylee Ok PA-C Work Phone: [facility] 07-15-2022 15:03-0400 Diastolic blood pressure 80 mm[Hg] Giuseppe Duong Work Phone: [facility] [place] [address] Work Phone: 07-15-2022 15:03-0400 Systolic blood pressure 122 mm[Hg] Giuseppe Duong Work Phone: [facility] [address] Work Phone: 07-15-2022 15:02-0400 Body height 160.02 cm Giuseppe uDong Work Phone: [facility] [address] Work Phone: 07-15-2022 15:02-0400 Body mass index (BMI) [Ratio] 42.78 kg/m2 Giuseppe Duong Work Phone: [facility] [address] Work Phone: 07-15-2022 15:02-0400 Body surface area Derived from formula 2.1 m2 Giuseppe Duong Work Phone: [facility] [address] Work Phone: 07-15-2022 15:02-0400 Body weight 109.54 kg Giuseppe Doung Work Phone: [facility] [address] Work Phone: 07-15-2022 15:02-0400 31 1 Giuseppe Duong Work Phone: [facility] [address] Work Phone: Encounters Encounter Date Encounter Type Care Provider Facility Start: 05-10-2023 End: 05-10-2023 ambulatory JOSS HORABDIAS Facility:[facility] Start: 05-09-2023 End: 05-10-2023 ambulatory FIDE HODGE Facility:[facility] Start: 04-15-2023 End: 04-16-2023 ambulatory OLIVIA [facility] Start: 04-15-2023 End: 04-15-2023 Subsequent hospital visit by physician Luis Carlos Mccollum [facility] Procedures Date Procedure Procedure Detail Performing Clinician Start: 04-15-2023 NM HEPATOBILIARY OLIVIA S WIFT Start: 04-15-2023 Hepatobil syst imag inc gb w/pharma intervenj Olivia W Gregory DO Work Phone: Start: 04-05-2023 US PELVIS TRANSABDOM INAL WITH TRANSVAGINAL OLIVIA GREGORY Start: 04-05-2023 Us transvaginal Olivia W Gregory DO Work Phone: Start: 04-05-2023 SEDIMENTATION RATE, AUTOMATED OLIVIA GREGORY Start: 04-05-2023 CT ABDOMEN PELVIS W IV CONTRAST OLIVIA GREGORY Start: 04-04-2023 Comprehensive metabo lic 2000 panel - Serum or Plasma OLIVIA GREGORY Start: 04-04-2023 Lipase [Enzymatic activity/volume] in Serum or Plasma OLIVIA GREGORY Start: 04-04-2023 Magnesium [Mass/volu me] in Serum or Plasma OLIVIA GREGORY Start: 04-04-2023 CBC W Auto Different ial panel - Blood OLIVIA GREGORY Start: 04-04-2023 Sedimentation rate r bc automated Olivia W Gregory DO Work Phone: Start: 04-04-2023 Ct abdomen & pelvis w/contrast material Olivia W Gregory DO Work Phone: Start: 04-04-2023 End: 04-04-2023 Comprehensive metabolic panel Olivia bright DO Work Phone: Start: 03-17-2023 XR ABDOMEN [...] exam abdo men 2 views Sofi Temple PIPE AND TANK FABRICATOR-FIBERGLASS PIPE COVERING SUPERVISOR Work Phone: Start: 02-07-2023 Gastric emptying sandra [...] of 2) Zoster Vaccines (1 of 2) [facility] Start: 04-26-2027 Lipid panel Lipid Panel [facility] Start: 12-31-2022 Influenza vaccination Influenza Vaccine (#1) [facility] Start: 10-03-2022 Urine microalbumin profile DTaP,Tdap,Td Vaccine (1 - Tdap) [facility] Start: 07-15-2022 NPV, Provider: Rustam Aponte, Status: Pen, Time: 3:00 PM NPV, Provider: Rustam Aponte, Status: Pen, Time: 3:00 PM CZ-Kwrksqalda-[address] Work Phone: Start: 06-25-2022 FUV, Provider: Ann Chen, Status: Pen, Time: 1:00 PM FUV, Provider: Ann Chen, Status: Pen, Time: 1:00 PM LF-Eackpogxwk-Hzzjpty [address] Work Phone: Start: 06-07-2022 EVENT JOSE, Provider: KATALINA DIAGNOSTIC THERAPIST,SMCMONITOR, Status: Pen, Time: 1:30 PM EVENT JOSE, Provider: KATALINA DIAGNOSTIC THERAPIST,SMCMONITOR, Status: Pen, Time: 1:30 PM DW-Rpijfhzhuu-Wtyhcch [address] Work Phone: Start: 06-07-2022 ECHO, Provider: KATALINA HHVI ECHO 2,SMCECHO2, Status: Pen, Time: 12:30 PM ECHO, Provider: KATALINA HHVI ECHO 2,SMCECHO2, Status: Pen, Time: 12:30 PM ZI-Nlqypypwjp-Bsbvrod [address] Work Phone: Start: 05-02-2022 Depression Assessment Depression Assessment [facility] Start: 10-03-2021 Chlamydia Screening (18-24) Chlamydia Screening (18-24) [facility] Start: 10-03-2021 GC (Gonorrhea) Screening (18-24) GC (Gonorrhea) Screening (18-24) [facility] Start: 10-03-2021 Hepatitis C Screening Hepatitis C Screening [facility] Start: 10-03-2021 Hepatitis C screening Hepatitis C Screening [facility] Start: 10-03-2021 HIV Screening HIV Screening [facility] Start: 2019 Meningococcal B Vaccine: Consider Based On Risk (1 of 2 - Patient Seeks Protection) Meningococcal B Vaccine: Consider Based On Risk (1 of 2 - Patient Seeks Protection) [facility] Start: 10-03-2017 Peds To Adult Transition Annual Assessment Peds To Adult Transition Annual Assessment [facility] Start: 2015 Peds To Adult Transition Initial Discussion Peds To Adult Transition Initial Discussion [facility] Start: 10-03-2014 HPV Vaccines (1 - 2-dose series) HPV Vaccines (1 - 2-dose series) [facility] Start: 10-03-2012 HPV Vaccine (1 - 2-dose series) HPV Vaccine (1 - 2-dose series) [facility] Start: 10-03-2010 DTaP/Tdap/Td Vaccines (1 - Tdap) DTaP/Tdap/Td Vaccines (1 - Tdap) [facility] Start: 10-03-2006 Well Child Visit (WCV) - Annual Well Child Visit (WCV) - Annual [facility] Start: 10-03-2004 MMR Vaccines (1 of 1 - Standard series) MMR Vaccines (1 of 1 - Standard series) [facility] Start: 10-03-2004 Varicella vaccination Varicella Vaccines (1 of 2 - 2-dose childhood series) [facility] Start: 06-05-2004 Application of dental fluoride varnish Fluoride Varnish [facility] Start: 04-04-2004 Covid-19 Vaccine (#1) Covid-19 Vaccine (#1) [facility] Start: 2003 Hearing Screening (#1) Hearing Screening (#1) [facility] Start: 2003 Hepatitis B Vaccine (1 of 3 - 3-dose series) Hepatitis B Vaccine (1 of 3 - 3-dose series) [facility] Start: 2003 Hepatitis B Vaccines (1 of 3 - 3-dose series) Hepatitis B Vaccines (1 of 3 - 3-dose series) [facility] Start: 2003 HIV screening HIV Screening [facility] End: 02-13-2024 Gastric emptying imaging study NM GASTRIC EMPTYING SOLID Radiology Routine Bilateral upper abdominal pain Nausea Early satiety 1 Occurrences starting 01/14/2023 until 02/13/2024 [facility] Work Phone: Immunizations Immunization Date Immunization Notes Care Provider Mark rudolph 06-27-2004 influenza virus vacc ine, unspecified formulation Rylee Euceda PA-C Work Phone: [facility] Payers Date Payer Category Payer Unknown [id number] 2017 Unknown 2008 Unknown [id number] 2003 Unknown 2010 2.16.8 [id number] 2003 Unknown [id number] 2.16.8 [id number] 2003 Unknown [id number] 2.16.8 [id number] 2003 Unknown [id number] 2.16.8 [id number] 2003 Unknown [id number] 2.16.8 [id number] 2003 Unknown [id number] 2.16.8 40.1.001986.3.579.2.9 2003 Unknown [id number] 2.16. [id number] 2003 Unknown [id number] 2.16. [id number] 2003 Unknown [id number] 2.16. [id number] 2003 Unknown [id number] 2.16.8 40.1.268448.3.579.2.5 2003 Unknown [id number] 2.16.84 0.1.017990.3.579.2.1243 2003 Unknown [id number] 2.16.84 0.1.411412.3.579.2.1243 2003 Unknown [id number] 2.16.84 0.1.842134.3.579.2.1243 1983 Unknown [id number] 2.16.84 0.1.279245.3.579.2. 1983 Unknown [id number] 2.16.84 0.1.634448.3.579.2.717 1983 Unknown [id number] 2.16.84 0.1.323635.3.579.2.717 1983 Unknown [id number] 2.16.84 0.1.258623.3.579.2.717 1983 Unknown [id number] 2.16. [id number] Social History Date Type Detail Facility Start: 01-14-2023 No caffeine use No caffeine use [facility] Work Phone: Start: 01-14-2023 Tobacco smoking status MTIS Never smoked tobacco [facility] Start: 01-14-2023 Tobacco use and exposure Smokeless tobacco non-user [facility] Start: 01-14-2023 Alcohol intake Lifetime non-d teresa (finding) [facility] Start: 01-14-2023 Tobacco use panel [facility] National Score (1-100), lower number is lower risk 70 [facility] Start: 2003 Sex Assigned At Not on file C [facility] Tobacco smoking status [facility] Tobacco smoking consumption unknown [facility] Work Phone: Start: 03-07-2023 End: 04-15-2023 Exposure to SARS-CoV-2 (event) Not sure [facility] Clinical Notes 01-30-2022 to 05-10-2023 Olivia Gregory, DO - 04/04/2023 9:03 PM Juan Antonio Gregory, DO - 04/04/2023 9:03 PM Art Pace RT(R) - 02/07/2023 8:30 AM LUISTRylee Euceda PA-C - 01/14/2023 11:05 AM EDT Note Date & Type Note Facility 05-10-2023 Note HNO ID: [id number] Author: JOSS CALVILLO MD Service: ? Author [...] No lymphedema Proce (more content not included)... [facility] 05-09-2023 Note HNO ID: [id number] Author: FIDE HODGE APRN.FIBERGLASS PIPE COVERING SUPERVISOR Service: ? Author Type: Nurse Practitioner Type: Progress Notes Filed: 05/09/2023 17:19 Note Text: Kajal Sweeney is a 17 year old female who presents for problem visit of adnexal mass. HPI: Patient was seen in the ER on 04/04/23 for abdominal pain. Found a gallbladder problem, has appointment tomorrow to schedule surgery with [facility]. Surgery is to be at [facility] by Dr. Paulino. 8.6 cm right adnexal mass with characteristics most suggestive of an ovarian cyst/teratoma (noted on CT). OB History No obstetric history on file. [employer] Work[employer] History LMP: 04/15/2023 (Exact Date), Having periods Age at Menarche: Age at First : Age at Menopause: [employer] Work[employer] History Comments: Sexual Activity: Yes; Male Contraception: [...] Medical Decision Making Level: 4 - Moderate [facility] 04-04-2023 Emergency department Note HPI Chief Complaint [...] have an ultrasound of the gallbladder with Mengcao to determine if this is the case. [...] on file Physical Exam ED Triage Vitals [04/04/23 2111] Temp Heart Rate Resp BP 36.2 C [...] Sonya Thompson 04/05/2023 2:19 AM Dictation workstation: [id number] CT abdomen pelvis w IV contrast Final Result 1. 8.6 cm right adnexal mass with characteristics most suggestive of an ovarian dermoid/teratoma. Given the size of the mass, this may place patient at risk for torsion. MACRO: None Signed by: Richard Del Rosario 04/04/2023 11:33 PM Dictation workstation: [id number] ED Course & MDM Diagnoses as of [...] Sonya Thompson 04/05/2023 2:19 AM Dictation workstation: [id number] CT abdomen pelvis w IV contrast Final Result 1. 8.6 cm right adnexal mass with characteristics most suggestive of an ovarian dermoid/teratoma. Given the size of the mass, this may place patient at risk for torsion. MACRO: None Signed by: Richard Del Rosario 04/04/2023 11:33 PM Dictation workstation: [id number] Medical Decision Making Hita Scan of GB as an outpt. Take medication as prescribed. [place] diet. Follow-up with entry level civil engineer for evaluation of large right dermoid cyst. If symptoms worsen return to ED. Procedure Procedures Olivia Gregory DO 04/05/23302 documented in this encounter [facility] Work Phone: 04-04-2023 Physician Emergency [...] have an ultrasound of the gallbladder with Mengcao to determine if this is the case. [...] on file Physical Exam ED Triage Vitals [04/04/23 2111] Temp Heart Rate Resp BP 36.2 C [...] Sonya Thompson 04/05/2023 2:19 AM Dictation workstation: [id number] CT abdomen pelvis w IV contrast Final Result 1. 8.6 cm right adnexal mass with characteristics most suggestive of an ovarian dermoid/teratoma. Given the size of the mass, this may place patient at risk for torsion. MACRO: None Signed by: Richard Del Rosario 04/04/2023 11:33 PM Dictation workstation: [id number] ED Course & MDM Diagnoses as of [...] Sonya Thompson 04/05/2023 2:19 AM Dictation workstation: [id number] CT abdomen pelvis w IV contrast Final Result 1. 8.6 cm right adnexal mass with characteristics most suggestive of an ovarian dermoid/teratoma. Given the size of the mass, this may place patient at risk for torsion. MACRO: None Signed by: Richard Del Rosario 04/04/2023 11:33 PM Dictation workstation: [id number] Medical Decision Making Hita Scan of GB as an outpt. Take medication as prescribed. [place] diet. Follow-up with entry level civil engineer for evaluation of large right dermoid cyst. If symptoms worsen return to ED. Procedure Procedures Olivia Gregory DO 04/05/23302 [facility] Work Phone: 02-07-2023 Note HNO ID: [id number] Author: Art Shukla RT(R) Service: Nuclear Medicine [...] 9:13 PATIENT DISCHARGED TO: Ambulatory patient, left [place] department area. A Diagnostic radioactive procedure has taken place, with no further precautions necessary other than routine body substance precautions. More information regarding radiation safety can be found using this link: [email or web address] [email or web address]%20Nuclear%20Medi cine%20Procedures.[email or web address] SIGNATURE: RT Erum(R) PATIENT NAME: Kajal Sweeney DATE: February 07, 2023 TIME: 9:22 AM PAGER/CONTACT #: [facility] 02-07-2023 History of Present illness Narrative RADIOLOGY [...] 9:13 PATIENT DISCHARGED TO: Ambulatory patient, left [place] department area. A Diagnostic radioactive procedure has taken place, with no further precautions necessary other than routine body substance precautions. More information regarding radiation safety can be found using this link: [email or web address] [email or web address]-%20Diagnostic%20Nuclear %20Medicine%[email or web address] SIGNATURE: RT Erum(Hesham) PATIENT NAME: Kajal Sweeney DATE: February 07, 2023 TIME: 9:22 AM PAGER/CONTACT #: documented in this encounter [facility] 01-14-2023 Note HNO ID: [id number] Author: Rylee Euceda PA-C Service: ? Author Type: Physician Ticket Chopper Assembler Type: Progress Notes Filed: 01/14/2023 11:32 AM [...] for internal providers or letter via the [employer] Postal Service for external providers. HPI: Kajal [...] SURGICAL HISTORY Procedure Laterality Date EGD W/O [facility] SPEC VARICIES INJ 08/23/2022 TONSILLECTOMY AND ADENOIDECTOMY [...] with bilateral upp (more content not included)... [facility] 01-14-2023 History of Present illness Narrative CHIEF COMPLAINT: Patient presents with: Abdominal Pain: Has been progressively getting worse over the last year. EGD 08/23/22 This consult was requested by Self for an opinion regarding abdominal pain. My final recommendations will be communicated to the requesting health care provider by way of the shared medical record for internal providers or letter via the [employer] Postal Service for external providers. HPI: Kajal [...] SURGICAL HISTORY Procedure Laterality Date EGD W/O [facility] SPEC VARICIES INJ 08/23/2022 TONSILLECTOMY & ADENOIDECTOMY [...] which included preparing to see the patient, [id number] patient care, completing clinical documentation, obtaining and/or reviewing separately obtained history, performing a medically appropriate examination, counseling and educating the patient/family/caregiver, and ordering medications, tests, or procedures. Rylee Euceda PA-C January 14, 2023 11:25 AM documented in this encounter [facility] 06-14-2022 Note ED Nursing Discharge Summary Entered On: 06/13/2022 22:46 EST Performed On: 06/13/2022 22:45 EST by Janett Cummings RN [place] Information [id number] ED IV's : No IV ED IV Site Assessment : No IV ED Vitals Completed : Yes ED Final Assessment Completed : Yes ED Progress Note Completed : Yes Complete all PRN/Pain response forms? : Yes ED Disassociate Patient from Monitor : N/A Updated Depart Time : No (not needed time is correct) ED Belongings sent w patient [id number] : Yes Valuables Complete : Not applicable [...] Janett Cummings RN - 06/13/2022 22:45 EST [facility] 01-30-2022 History of Present illness [...] was performed greater than 1 year ago. [facility] [place] [address] Work Phone: [facility] Diagnosis Bilateral upper abdominal pain Abdominal pain, right upper quadrant Nausea Nausea alone Early satiety [facility] Diagnosis Unspecified abdominal pain documented in this encounter [facility] Work Phone: Evaluation note* Diagnosis Unspecified abdominal pain documented in this encounter [facility] Work Phone: Evaluation note* Diagnosis Nausea with vomiting, unspecified Unspecified chronic gastritis without bleeding Nausea Nausea alone documented in this encounter [facility] Work Phone: Evaluation note* Diagnosis Cyst, ovary, dermoid, right- Primary Biliary dyskinesia Other specified disorder of gallbladder documented in this encounter [facility] Work Phone: Evaluation note* Diagnosis Biliary dyskinesia Other specified disorder of gallbladder documented in this encounter [facility] [facility] Work Phone: History of Present illness Narrative* Kajal Sweeney is an 16-year-old obese female with no significant PMH establishing Cardiology care referred by her Paper Wrapping Machine Operator for a RBBB finding on her EKG. 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 No other associated symptoms presently. [email or web address] Phone: [facility] for referral (narrative)* Diagnostic Procedure Only (Routine) - Open Specialty Diagnoses / Procedures Referred By Marcus liao Referred To Contact MOLECULAR & FUNCTIONAL IMAGING Diagnoses Bilateral upper abdominal pain Nausea Early satiety Procedures NM GASTRIC EMPTYING SOLID GASTRIC EMPTYING STUDY Rylee Euceda PA-C [address] [place] [address] Molecular & Functional Imaging [address] [place] [address] Referral ID Status Reason Start Date Expiration Date V isits Requested Visits Authorized [id number] Open Auto-Generate d Referral 01/14/2023 02/13/2024 1 1 [facility] for referral (narrative)* Diagnostic Procedure Only (Routine) - Closed Specialty Diagnoses / Procedures Referred By Marcus liao Referred To Contact MOLECULAR & FUNCTIONAL IMAGING Diagnoses Bilateral upper abdominal pain Nausea Early satiety Procedures NM GASTRIC EMPTYING SOLID GASTRIC EMPTYING STUDY Rylee Euceda PA-C [address] [facility] [place] [address] Molecular & Functional Imaging [address] [place] [address] Referral ID Status Reason Start Date Expiration Date V isits Requested Visits Authorized [id number] Closed Auto-Generate d Referral 01/18/2023 05/01/2023 1 1 [facility] Summary Purpose Family History No Family [...] Referral Specialty Diagnoses / Procedures Referred By Contac t Referred To Contact Radiology Diagnoses Unspecified abdominal pain Procedures XR abdomen 2 views supine and decubitus Sofi Temple, PIPE AND TANK FABRICATOR-F[employer]ERGLASS PIPE COVERING SUPERVISOR [address] [place] [address] Referral ID Status Reason Start Date Expiration Date Visits Requested Visits Authorized [id number] Authorized Perform Procedure 3 03/16/2024 1 1 Specialty Diagnoses / Procedures Referred By Contac t Referred To Contact Radiology Diagnoses Biliary dyskinesia Procedures NM hepatobiliary Olivia Gregory, DO [address] [place] [address] Referral ID Status Reason Start Date Expiration Date Visits Requested Visits Authorized [id number] Authorized Perform Procedure 04/05/2023 04/04/2024 3 3 Additional Source Comments INFORMATION SOURCE (unrecogn ized section and content) DATE CREATED AUTHOR AUTHOR'S ORGANIZ ATION 06/14/2022 [facility] DATE CREATED AUTHOR AUTHOR'S ORGANIZ ATION 06/16/2022 [facility] DATE CREATED AUTHOR AUTHOR'S ORGANIZ ATION 07/16/2022 [facility] DATE CREATED AUTHOR AUTHOR'S ORGANIZ ATION 09/01/2022 [facility] DATE CREATED AUTHOR AUTHOR'S ORGANIZ ATION 12/21/2022 [facility] DATE CREATED AUTHOR AUTHOR'S ORGANIZ ATION 03/22/2023 [facility] DATE CREATED AUTHOR AUTHOR'S ORGANIZ ATION 05/13/[address] [facility] DATE CREATED AUTHOR AUTHOR'S ORGANIZ ATION 05/13/2023 [facility] DATE CREATED AUTHOR AUTHOR'S ORGANIZ ATION 05/15/2023 [facility] Source Comments (unrecognize d section and content) In the event this informatio n is protected by the Federal Confidentiality of Alcohol and Drug Abuse Patient Records regulations: The Federal rules restrict any use of the information to criminally investigate or prosecute any alcohol or drug abuse patient.[facility] the event this information is protected by the Federal Confidentiality of Alcohol and Drug Abuse Patient Records regulations: The Federal rules restrict any use of the information to criminally investigate or prosecute any alcohol or drug abuse patient.[facility] Reason for Visit (unrecogniz ed section and content) Specialty Diagnoses / Procedures Referred By Contac t Referred To Contact Diagnoses HCAP Procedures HCAP Self [facility] [place] [address] Referral ID Status Reason Start Date Expiration Date Visits Requested Visits Authorized [id number] Authorized Patient Cleared - Qualified 100% FAS 11/16/2022 02/14/2023 99 99 Reason Comments Radiology NM Specialty Diagnoses / Procedures Referred By Contac t Referred To Contact MOLECULAR & FUNCTIONAL IMAGING Diagnoses Bilateral upper abdominal pain Nausea Early satiety Procedures NM GASTRIC EMPTYING SOLID GASTRIC EMPTYING STUDY Rylee Euceda PA-C [address] [facility] [place] [address] Molecular & Functional Imaging [address] [place] [address] Referral ID Status Reason Start Date Expiration Date V isits Requested Visits Authorized [id number] Closed Auto-Generate d Referral 01/18/2023 05/01/2023 1 1 Specialty Diagnoses / Procedures Referred By Contac t Referred To Contact Radiology Diagnoses Unspecified abdominal pain Procedures XR abdomen 2 views supine and decubitus Sofi Temple, PIPE AND TANK FABRICATOR-F[employer]ERGLASS PIPE COVERING SUPERVISOR [address] [place] [address] Referral ID Status Reason Start Date Expiration Date Visits Requested Visits Authorized [id number] Authorized Perform Procedure 3 03/16/2024 1 1 [...] Biliary dyskinesia Procedures NM hepatobiliary Olivia Gregory, [address] [place] [address] Referral ID Status Reason Start Date Expiration Date Visits Requested Visits Authorized [id number] Authorized Perform Procedure 04/05/2023 04/04/2024 3 3 Care Teams (unrecognized sec tion and content) Medical Orderly Relationship Specialty Start Date End Date Giuseppe Duong MD [address] [place] [id number] PCP - General 03/01/19 Medical Orderly Relationship Specialty Start Date End Date Giuseppe Duong MD [address] [facility] [place] [address] PCP - General 03/01/19 Medical Orderly Relationship Specialty Start Date End Date Giuseppe Duong MD [address] [facility] [place] [address] PCP - General 03/01/19 Medical Orderly Relationship Specialty Start Date End Date Giuseppe Duong MD [address] [place] [address] PCP - General 03/01/19 Scheduled Active and Recently Administ ered Medications (unrecognized section and content) Continuous Medication Order 04/03/2023 04/04/2023 04/05/2023 sodium chloride 0.9% infusion 125 mL/hr, intravenous, Continuous, Starting on Tue04/04/23 at 2120 2120 (New Bag - Provider: Belen Romero, RN) 0305 (Stopped - Provider: Belen Romero, RN) [...] BE BASED ON THE PRIMARY CLINICAL RECORDS. [email or web address] [facility]. provides no warranty or guarantee of the accuracy or completeness of information in this document.
[2023-06-21 23:30] LABS: Absolute Lymphocyte Count 1.59 X10^3/uL (0.83-4.51); Absolute Neutrophil Count 7.3 X10^3/uL (2.0-7.7); Basophil# 0.04 X10^3/uL; Basophil% 0.4 % (0-1); Eosinophil# 0.07 X10^3/uL; Eosinophils% 0.7 % (0-5); Hematocrit 44.8 % (37-47); Hemoglobin 14.8 g/dL (12.0-15.0); Lymphocyte # 1.59 X10^3/ul (0.83-4.51); Mean Corpuscular Hgb 28.6 pg (27.0-32.0); Mean Corpuscular Volume 86.5 fL (81-99); Mean Platelet Vol. 9.7 fl (6.2-12.0); Monocyte# 0.33 X10^3/uL; Monocyte% 3.5 % (0-10); NRBC Flagged by Analyzer 0 % (0-5); Neutrophil # 7.33 X10^3/uL (2.7-7.7); Neutrophil % 78.2 % (47-70); Platelet Count 317 K/mm3 (150-450); RBC Distribution Width CV 11.7 % (11.6-14.6); RBC Distribution Width SD 37.1 fl (35.1-43.9); Red Blood Count 5.18 M/mm3 (4.2-5.4); White Blood Count 9.4 K/mm3 (4.4-11.0)
[2023-06-21 23:44] LABS: Internal QC Validated? YES +Cl - CLEAR BKGD
[2023-06-21 23:45] LABS: Pregnancy, Serum, hCG Quali. NEGATIVE Negative
[2023-06-21 23:48] LABS: AST(SGOT) 186 U/L (15-37); Alanine Aminotransfer ALT/SGPT 182 U/L (13-56); Albumin, Serum 4.1 g/dL (3.2-5.0); Alkaline Phosphatase 69 U/L (45-117); Anion Gap 5 (5-15); BUN 12 mg/dL (7-18); BUN/Creat Ratio 16.3 RATIO (10-20); Bilirubin, Direct 0.45 mg/dL (0.00-0.30); Calcium,Total 9.4 mg/dL (8.5-10.1); Chloride 104 mmol/L (98-107); Creatinine, Serum 0.74 mg/dL (0.55-1.02); EST Glomerular Filtration Rate 107 mL/min (>60); Est Glom Filt Rate - Afr Amer 130 mL/min (>60); Estimated Creatinine Clearance 138.37 ml/min; Globulin 4.5 g/dL (2.2-4.2); Glucose 122 mg/dL (74-106); Lipase 38 U/L (13-75); Potassium 3.5 mmol/L (3.5-5.1); Protein, Total 8.6 g/dL (6.4-8.2); Sodium Level 137 mmol/L (136-145)
[2023-06-22] MEDS: proCHLORPERazine 10 MG/2 ML Vial IV (00:21)
--- NOTE | 2023-06-22 00:28 | EX.ED.DYSGE1 ---
HPI History of Present Illness Chief Complaint: Abd Pain Informant: patient and spouse/S.O. Narrative Narrative: Patient is a 17-year-old female with past medical history of gallbladder dysfunction. She states she is scheduled to have her gallbladder removed June 27. She states that this evening she ate [employer] for dinner and then shortly after began having pain and nausea in the right upper quadrant. She states that she took [id number] medication and waited an hour or so for symptoms to improve but they have not done so. With concern she is having a gallbladder attack she presents for evaluation [facility]SH [facility] Home Medications ondansetron 4 mg disintegrating tablet 8 mg (2 x 4 mg) PO Q8H PRN PRN Nausea #20 tabs 10/17/22 [Rx Last Taken Unknown] ibuprofen 200 mg tablet (Advil) 400 mg PO Q8H 06/21/23 [History Last Taken Unknown] ondansetron HCl 4 mg tablet 4 mg PO TID PRN nausea and vomiting 7 days #21 tabs 06/22/23 [Rx Last Taken Unknown] oxycodone-acetaminophen 5 mg-325 mg tablet (Percocet) 1 tab PO Q6H PRN pain 3 days #12 tabs 06/22/23 [Rx Last Taken Unknown] Allergy/AdvReac Type Severity Reaction Status Date / Time No Known Allergies Allergy Verified 06/21/23 22:50 Surgical History S/P tonsillectomy Social History Smoking Status: Current every day smoker tobacco type: e-cigarettes ROS ROS ED Constitutional Constitutional ED: Denies chills or fever(s) Eyes Eyes: Denies change in vision ENT ENT ED: Denies sore throat Cardiovascular Cardiovascular: Denies chest pain Respiratory/Chest Respiratory/Chest: Denies cough or dyspnea Gastrointestinal Gastrointestinal: Reports abdominal pain and nausea; Denies diarrhea or vomiting Genitourinary Genitourinary ED: Denies dysuria or hematuria Musculoskeletal Musculoskeletal: Denies myalgias Integumentary Denies rash Neurologic Neurologic: Denies headache(s) Hematologic/Lymphatic Hematologic/Lymphatic: Denies easy bleeding or easy bruising EXAM Physical Exam Const Vital Signs: 02/20/24 22:47 Temperature 96.6 F L Temperature Source Temporal Pulse Rate 97 Respiratory Rate 18 Blood Pressure 107/87 H Blood Pressure Mean 93 Pulse Ox 100 Positive well nourished and well developed General Appearance ED: well developed; Negative for pallor HEENT Reports moist mucous membranes HEENT Narrative: No signs of infection noted in the posterior pharynx Eyes PERRL and EOMs intact bilaterally General Eye ED: Negative for scleral icterus Neck supple Resp normal respiratory effort and clear to auscultation bilaterally Cardio regular rate and regular rhythm Rate: other Other Details: Heart is regular rate and rhythm without murmurs rubs or gallops Radial and carotid pulses equal and symmetric GI non-distended GI Narrative: Abdomen is soft and nondistended with hyperactive bowel sounds. Patient has pain on palpation in the midepigastric and right upper quadrant region. However no voluntary guarding or rigidity. No pulsatile mass or fluid wave. Negative Pena sign Auscultation: hyperactive bowel sounds Palpation: soft Back/Spine no CVA tenderness Extremity normal to inspection Neuro oriented x3, CN's II-XII intact bilaterally and no sensory deficits noted Sensorium / Orientation: alert Motor Exam: strength 5/5 throughout Psych mental status grossly normal Skin no rashes or lesions noted General Skin Exam: Negative for jaundice or pallor MDM MDM MDM Narrative Medical decision making narrative: Patient presented to the ER with stable vitals and a soft nonsurgical abdomen. She has a known history of gallbladder dysfunction and ate food that could cause biliary spasm. She is not jaundiced she does not have a positive Pena sign and therefore I felt no need for emergent imaging studies. Differential diagnosis is for biliary colic versus acute cholecystitis versus pancreatitis versus gastritis. Patient's white count is normal she is afebrile and she does not have voluntary guarding or positive Pena sign and therefore my concern for acute cholecystitis is low. Lipase is normal going against pancreatitis. Liver enzymes are slightly elevated with mild elevation to her direct bilirubin which correlates with biliary colic. However as there is no physical exam finding or laboratory changes to suggest infection I do not feel there is need for emergent imaging studies or surgical consultation. On reevaluation patient's had resolution of her symptoms and her abdomen remains soft and nonsurgical and therefore she can be discharged home and follow-up as directed with her surgeon for continued treatment and cholecystectomy. History & Record Review Discussion w/independent historian: Patient and Significant other Lab Data Attestation: I reviewed the patient's lab results. Labs: Laboratory Results - last 24 hr 06/21/23 23:17 WBC 9.4 RBC 5.18 Hgb 14.8 Hct 44.8 MCV 86.5 MCH 28.6 MCHC 33.0 RDW Std Deviation 37.1 RDW Coeff of Crystal 11.7 Plt Count 317 MPV 9.7 Immature Gran % (Auto) 0.200 Neut % (Auto) 78.2 H Lymph % (Auto) 17.0 L [place] % (Auto) 3.5 Eos % (Auto) 0.7 Baso % (Auto) 0.4 Absolute Neuts (auto) 7.3 Absolute Lymphs (auto) 1.59 Nucleated RBC % 0 Sodium 137 Potassium 3.5 Chloride 104 Carbon Dioxide 28.0 Anion Gap 5 BUN 12 Creatinine 0.74 Estim Creat Clear Calc 138.37 Est GFR (MDRD) Af Amer 130 Est GFR (MDRD) Non-Af 107 BUN/Creatinine Ratio 16.3 Glucose 122 H Calcium 9.4 Total Bilirubin 0.90 Direct Bilirubin 0.45 H AST 186 H ALT 182 H Alkaline Phosphatase 69 Total Protein 8.6 H Albumin 4.1 Globulin 4.5 H Lipase 38 Serum , Qual NEGATIVE Discharge Plan Triage Chief Complaint: Abd Pain ED Provider: Cedrick Vo Dx/Rx/DC Orders Clinical Impression: Biliary colic, Nausea Instructions: ED Gallstones with Biliary Colic Prescriptions: New ondansetron HCl 4 mg tablet 4 mg PO TID PRN (Reason: nausea and vomiting) 7 Days Qty: 21 0RF oxycodone-acetaminophen [Percocet] 5-325 mg tablet 1 tab PO Q6H PRN (Reason: pain) 3 Days Qty: 12 0RF No Action ondansetron [ondansetron] 4 mg tablet,disintegrating 8 mg PO Q8H PRN PRN (Reason: Nausea) Qty: 20 0RF ibuprofen [Advil] 200 mg tablet 400 mg PO Q8H Primary Care Provider: Care Physician,No Primary Referrals: Care Physician,No Primary [Primary Care Provider] - Activity Restrictions/Additional Instructions: Please follow-up with your general surgeon as directed for your scheduled cholecystectomy. Eat a bland diet and smaller more frequent meals to prevent further gallbladder spasm/attacks. Return to the ER should you have any further concerns Disposition Disposition: Home, Self Care
[2023-06-22 00:51] VITALS: BP 113/56; PULSE 89; RESP 14; TEMP 36.6; O2SAT 100
== END 2023-06-22 00:56 | disposition home or self-care (01) ==
PROVIDERS: Emergency Provider Emergency Medicine; Visit Provider Emergency Medicine
DX: K80.50 Calculus of bile duct without cholangitis or cholecystitis without obstruction (principal); F17.290 Nicotine dependence, other tobacco product, uncomplicated; Z87.19 Personal history of other diseases of the digestive system
CPT/HCPCS: 80048; 80076; 83690; 84703; 85025; 96361; 96374; 96375; 99283; J7030; A4216; J2405